=== PATIENT | female | born 1945 | race Caucasian/White ===

== ENCOUNTER → 2017-02-22 | Outpatient (CLI) | payer OTHER | LOC: FIMAGING 14:51 | PROVIDERS: ATTEND Internal Medicine | DX: Z12.31 Encounter for screening mammogram for malignant neoplasm of breast (principal) | CPT/HCPCS: G0202 ==

== ENCOUNTER 2017-06-06 08:11 | Outpatient (CLI) | payer OTHER ==
[2017-06-06] MEDS ORDERED: GADOBUTROL 10 ML VIAL IVP ONE (08:19)
[2017-06-06] MEDS ORDERED: MIDAZOLAM 2 MG/2 ML VIAL IVP PRN (08:33)
[2017-06-06] MEDS ORDERED: NALOXONE HCL 0.4 MG/ML INJ IVP PRN (08:33)
[2017-06-06] MEDS ORDERED: FLUMAZENIL 0.5 MG/5 ML MDV IVP PRN (08:33)
[2017-06-06] MEDS ORDERED: fentaNYL 100 MCG/2 ML INJ IVP PRN (08:33)
[2017-06-06] MEDS ORDERED: NS 1,000 ML IV SCH (08:45)
[2017-06-06 09:05] VITALS: TEMP 97.9
--- NOTE | 2017-06-06 09:25 | PDGENHP ---
History & Physical Chief Complaint: tremor History of Present Illness: tremor Cardiorespiratory Assessment: lungs clear, heart rate regular
--- NOTE | 2017-06-06 09:26 | PDPROPOC ---
Sedation Plan of Care Sedation Plan of Care: vital signs stable, mental status noted, patient educated of risks, benefits, alternatives, patient can tolerate sedation ASA Classification: ASA 1 Planned drugs: midazolam Mallampati Score: Class 2 Mallampati Reference Image: Patient passed 3-3-2 rule?: Yes
[2017-06-06] MEDS ORDERED: MIDAZOLAM 2 MG/2 ML VIAL ONE (10:12)
[2017-06-06] MEDS ORDERED: ACETAMINOPHEN 325 MG TAB PO PRN (10:46)
[2017-06-06] MEDS ORDERED: ONDANSETRON 4 MG/2 ML VIAL IVP PRN (10:46)
[2017-06-06 10:48] VITALS: BP 137/88; PULSE 88; RESP 16; O2SAT 91
== END 2017-06-06 11:50 | disposition home or self-care (01) ==
LOC: FIMAGING 08:11
PROVIDERS: ATTEND Physician Assistant Surgical
PROC: B030YZZ Magnetic Resonance Imaging (MRI) of Brain using Other Contrast (ICD-10-PCS; principal; 2017-06-06 09:38)
DX: G25.0 Essential tremor (principal); I67.9 Cerebrovascular disease, unspecified
CPT/HCPCS: 70552; 99152; 99153; A9585; J2250

== ENCOUNTER 2017-06-12 05:46 | Inpatient (IN) | payer OTHER ==
--- NOTE | 2017-06-06 09:37 | GHP ---
[f rep st] PREOP HISTORY AND PHYSICAL DATE OF ADMISSION: 06/12/2017 DATE OF SURGERY: 06/12/2017 HISTORY OF PRESENT ILLNESS: The patient is a 72-year-old female with essential tremor. She has had essential tremor for many years starting from when she was a teenager. She is right-hand dominant, however, her tremor is worse on the left. She has a family history of essential tremor and her son is now displaying symptoms. She denies bradykinesia or rigidity. She does not have a neurologist at this time. PAST MEDICAL HISTORY: Essential tremor. PAST SURGICAL HISTORY: Appendectomy, tonsillectomy. SOCIAL HISTORY: Admits to drinking alcohol socially. She is a former smoker and quit 20 years ago. She is retired. ALLERGIES: No known drug allergies. CURRENT HOME MEDICATIONS: Vitamin D3, calcium carbonate, vitamin C, multivitamin, Tylenol, Valtrex, Ambien, Actonel, and Cymbalta. FAMILY HISTORY: Essential tremor. REVIEW OF SYSTEMS: Patient denies chest pain, shortness of breath, abdominal pain, nausea, vomiting. No headaches. No loss of bowel or bladder control. PHYSICAL EXAM: Patient was seen and examined. Appears to be in no apparent distress. Mood and affect are appropriate. Alert and oriented. Pupils are equal and reactive. Extraocular movements are intact. Facial expression is symmetrical. Tongue is midline with protrusion. Hearing is grossly intact. Speech is fluent without any dysarthria. Muscle strength is well preserved in upper and lower extremities at 5/5 and sensation is intact to light touch. She has bilateral hand tremor, worse with intention. ASSESSMENT AND PLAN: In summary, the patient is a 72-year-old female with essential tremor. She has left greater than right hand tremor. However, she is right handed. She had a neuropsych evaluation completed on March [address] Queen who states she is a good candidate for proceeding with deep brain stimulation for treatment of her central tremor. At this point, we have decided to proceed with right VIM placement for left hand symptoms as her left hand is worse than her right hand. We will hold off on proceeding with right hand tremor at this time due to the increased side effects of bilateral DBS with slurred speech and balance disturbances that can occur with programming. The patient has elected to move forward with surgery. Consents were signed. Patient has agreed to proceed with left VIM deep brain stimulation lead placement with implant of battery 1 month later. /[id number]/MODL MTDD
[2017-06-12] MEDS ORDERED: CEFUROXIME 1,500 MG in NS 50 ML IV ONE (06:00)
[2017-06-12] MEDS ORDERED: LR 1,000 ML IV ONE (06:02)
[2017-06-12] MEDS ORDERED: LIDOCAINE 1% 2 ML INJ ID PRN (06:02)
[2017-06-12] MEDS ORDERED: DEXMEDETOMIDINE IN 0.9 % NACL 50 ML IV SCH (06:30)
[2017-06-12] MEDS ORDERED: niCARdipine/NACL 200 ML IV SCH (06:30)
[2017-06-12 06:34] LABS: PLATELET COUNT 312 10^3/uL (150-400)
[2017-06-12 06:39] LABS: INR 0.99 (0.83-1.16); PROTIME(PATIENT) 13.3 SEC (12.0-15.0)
--- NOTE | 2017-06-12 06:47 | PDANEPAE ---
ANE History of Present Illness right DBS ANE Past Medical History - Cardiovascular History Hx Hypertension: No Hx Arrhythmias: No Hx Chest Pain: No Hx Coronary Artery / Peripheral Vascular Disease: No Hx CHF / Valvular Disease: No Hx Palpitations: Yes - Pulmonary History Hx COPD: No Hx Asthma/Reactive Airway Disease: No Hx Recent Upper Respiratory Infection: Yes Hx Oxygen in Use at Home: No Hx Sleep Apnea: No Sleep Apnea Screening Result - Last Documented: Negative Pulmonary History Comment: "Getting over an upper respiratory infection." - Neurologic History Hx Cerebrovascular Accident: No Hx Seizures: No Hx Dementia: No - Endocrine History Hx Diabetes: No - Renal History Hx Renal Disorders: No - Liver History Hx Hepatic Disorders: No - Neurological & Psychiatric Hx Hx Neurological and Psychiatric Disorders: Yes Neurological / Psychiatric History Comment: Essential tremor - Cancer History Hx Cancer: No - Congenital Disorder History Hx Congenital Disorders: No - GI History Hx Gastrointestinal Disorders: No - Other Health History Other Health History: wears glasses - Chronic Pain History Chronic Pain: No - Surgical History Prior Surgeries: appendectomy at age 6. tonsillectomy at age 9. Blephoplasty bilateral 2014 ANE Review of Systems Review of systems is: negative Review of Systems: - Exercise capacity Exercise capacity: >=4 METS METS (RN): 4 METS ANE Patient History - Allergies Allergies/Adverse Reactions: No Known Allergies Allergy (Verified 05/31/17 13:56) - Home Medications Home Medications: DULoxetine [Cymbalta 60 MG (*)] 60 mg PO HS 09/06/09 [Last Taken 06/11/17 20:00] Acetaminophen [Tylenol 325mg (*)] 325 mg PO DAILY PRN 05/07/17 [Last Taken 06/05] Ascorbic Acid [Vitamin C 500 mg (*)] 1,000 mg PO DAILY 05/07/17 [Last Taken 03/13] Calcium Carbonate [Oyster Shell Calcium 500 mg (*)] 1,000 mg PO DAILY 05/07/17 [ Last Taken 06/05/17] Cholecalciferol Vit D3 [Vitamin D3 2000 units tab (OTC)] 2,000 units PO DAILY [Last Taken 06/05/17] Multivitamins [Multivitamin (*)] 1 tab PO DAILY 05/07/17 [Last Taken 06/05/17] Risedronate Sodium [Actonel] 150 mg PO Q30D 05/07/17 [Last Taken 05/10/17] Zolpidem Tartrate [Ambien 5MG (*)] 5 mg PO HS PRN 05/07/17 [Last Taken 06/05/17] valACYclovir [Valtrex (*)] 1,000 mg PO BID PRN 05/07/17 [Last Taken 04/21/17] - NPO status NPO Status: no food or drink >8 hours NPO Since - Liquids (Date): 06/11/17 NPO Since - Liquids (Time): 22:30 NPO Since - Solids (Date): 06/11/17 NPO Since - Solids (Time): 18:00 - Anes Hx Anes Hx: no prior problems - Smoking Hx Smoking Status: Former smoker - Alcohol Use Alcohol Use: Occasionally (6/wk) - Family Anes Hx Family Hx Anesthesia Complications: none ANE Labs/Vital Signs - Labs Result Diagrams: 06/12/17 06:01 06/12/17 06:17 - Vital Signs Blood Pressure: 135/94 Heart Rate: 88 Respiratory Rate: 18 O2 Sat (%): 91 Height: 160.02 cm Weight: 72.575 kg ANE Physical Exam - Airway Neck exam: FROM Mallampati Score: Class 2 - Pulmonary Pulmonary: no respiratory distress - Cardiovascular Cardiovascular: regular rate and rhythym - ASA Status ASA Status: II ANE Anesthesia Plan Anesthesia Plan: MAC
[2017-06-12] MEDS ORDERED: THROMBIN (BOVINE) 20,000 UNIT VIAL TP ONE (06:52)
[2017-06-12] MEDS ORDERED: CHLORHEXIDINE GLUC HIBICLENS 118 ML BTL TP ONE (06:52)
[2017-06-12] MEDS ORDERED: LIDOCAINE 2% JELLY 20 ML (UROJECT) ONE (06:53)
[2017-06-12] MEDS ORDERED: GENTAMICIN SULFATE 80 MG/2 ML VIAL ONE ×2 (06:53→07:16)
[2017-06-12] MEDS ORDERED: BUPIVACAINE 0.25% 30 ML SDV ONE ×2 (06:53→07:07)
--- NOTE | 2017-06-12 06:55 | PDHPUP ---
History & Physical Update H&P update statement: This history and physical update is based on an assessment of the patient which was completed after admission or registration (within 24 hours), but prior to the surgery/procedure. H&P update: H&P reviewed & patient examined, no change in patient's condition since H&P completed
[2017-06-12] MEDS ORDERED: DEXMEDETOMIDINE/NS 4MCG/ML 50 ML BTL IV ONE (06:56)
[2017-06-12] MEDS ORDERED: PROPOFOL/EMULSION 500 MG/50 ML BOTTLE IV ONE (06:57)
[2017-06-12] MEDS ORDERED: fentaNYL 100 MCG/2 ML INJ ONE (07:17)
[2017-06-12] MEDS ORDERED: LIDOCAINE 2% 5 ML SDV ONE (07:17)
[2017-06-12] MEDS ORDERED: POVIDONE-IODINE 30 GM OINTTUBE TP ONE (07:21)
[2017-06-12] MEDS ORDERED: ONDANSETRON 4 MG/2 ML VIAL ONE (08:08)
[2017-06-12] MEDS ORDERED: DEXAMETHASONE 4 MG/ML VIAL ONE (08:08)
[2017-06-12] MEDS ORDERED: PHENYLEPHRINE HCL 100 MCG/ML SYR ONE (09:02)
[2017-06-12] MEDS ORDERED: valACYclovir 500 MG TAB PO PRN (11:18)
[2017-06-12] MEDS ORDERED: LABETALOL HCL 5 MG/ML 20 ML MDV IVP PRN (11:19)
[2017-06-12] MEDS ORDERED: OXYCODONE/APAP 5/325 TAB PO PRN (11:19)
[2017-06-12] MEDS ORDERED: ONDANSETRON 4 MG/2 ML VIAL IVP PRN ×2 (11:19→11:20)
[2017-06-12] MEDS ORDERED: fentaNYL 100 MCG/2 ML INJ IVP PRN (11:19)
[2017-06-12] MEDS ORDERED: NALOXONE HCL 0.4 MG/ML INJ IVP PRN (11:19)
--- NOTE | 2017-06-12 11:19 | POSTANESTH ---
Post Anesthetic Evaluation Cardiovascular Status: Normal, Stable Respiratory Status: Normal, Stable Level of Consciousness/Mental Status: Can Participate in Eval, Moderately Sleepy Pain Control: Adequate, Prn Tx Ordered Nausea/Vomiting Control: Adequate, Prn Tx Ordered Complications Possibly Related to Anesthesia: None Noted
[2017-06-12] MEDS ORDERED: BISACODYL 10 MG SUPP PR PRN (11:20)
[2017-06-12] MEDS ORDERED: POLYETHYLENE GLYCOL 3350 17 GM PKT PO PRN (11:20)
[2017-06-12] MEDS ORDERED: LACTULOSE 20 GM/30 ML UDCUP PO PRN (11:20)
[2017-06-12] MEDS ORDERED: MAGNESIUM HYDROXIDE 30 ML UDCUP PO PRN (11:20)
--- NOTE | 2017-06-12 11:21 | GOP ---
[f rep st] OPERATIVE REPORT DATE OF OPERATION: 06/12/2017 SURGEON: Consuelo Gibson DO NEUROSURGEON: Consuelo Gibson DO. PEDIATRIC NEUROLOGIST: None. EDILSON dictation will be by Genevieve Acevedo PA-C. PREOPERATIVE DIAGNOSIS: Essential tremor. POSTOPERATIVE DIAGNOSIS: Essential tremor. PROCEDURE PERFORMED: 1. Right deep brain stimulator lead placement to VIM nucleus of the thalamus. 2. Stealth. 3. Impedances. FINDINGS: SPECIMENS: None. ESTIMATED BLOOD LOSS: 10 mL. INDICATIONS: This is a 72-year-old female with essential tremor, who was found to be a good candidat e for DBS to the VIM. She elected to move forward with right-sided lead placement. DESCRIPTION OF PROCEDURE: She was identified and consented and sites were marked. Brought to the op erating room and anesthetized with local. Hair was clipped with the OR clippers. Head was cleansed with ChloraPrep. Pin sites were anesthetized with 0.25% Marcaine with epinephrine. Using povidone i odine on the pin, Leksell frame was placed in a stereotactic fashion, and then a stereotactic spin wa s performed with the O arm 2 with a localizer box, and merged to the S8 frame length preoperative damien n and registered. The AC/PC distance was 27.27. The initial X was 12.56, Y of -6.91, and a Z of 0.0 7. The entry point X was 37.64, Y of 35.43, and Z of 73.63. This corresponded 18.8 degrees off mids agittal and 60.1 degrees off midaxial. This corresponded to Leksell frame coordinates of an X of 86. 5, a y of 95, a Z of 109.5, a ring of 66 degrees, and an arc of 74.6 degrees. These were all set and triple-checked by all providers in the room. After she was prepped and draped in the usual sterile fashion, incision site was marked using the stereotactic coordinates and the cannula, and then a half -ennis incision was anesthetized with 0.25% Marcaine with epinephrine. Incision was made with a 10 bl alessandra. Hemostasis was obtained with bipolar and Claire clips. We elevated the periosteum with a perios teal elevator, placed a retractor, and then marked the bone and opening using the preoperative plan. Created a submersible pilot hole and then a 14 mm bur hole. The edges were waxed. The dura was coagulated and opened sharply with an 11 blade. The cannula and stylet were introduced, and Gel-Foam and DuraSeal w as placed. We then performed microelectrode recording. We had actually an excellent run VIM; please refer to the EDILSON recording. However, on macro stim, we got some paresthesias at low voltages, indic ating this may be a posteriorly-placed lead. We had planned to make a 2 mm anterior move, so we drov e back up to target and remove the microelectrode, placed a cannula, removed the Gel-Foam and DuraSea l, and placed a 2 mm anterior cannula and internal stylette, locked it into place, removed the corporate communications intern al stylettes where both were replaced with microelectrodes. Performed another EDILSON with the anterior tract. Still got excellent thalamus elected. A macro stim tear was loaded with no side effects and good therapeutic effect. Elected to place the lead here, so at 2 above target. Please refer again t o the EDILSON dictation. We drove to this position, removed the EDILSON electrodes, placed the internal styl et in the center cannula, measured and placed the lead, and placed it into the position placed in the bottom of the bottom contact at 2 above target. We then tested each contact and got excellent thera peutic effect with low-to-no side effects. Elected to leave the lead here. Took an x-ray with the b omb site, and then performed a stereotactic spin, merged this and, in fact, we were exactly where we expected to be. Retracted the cannulae and placed the clipping mechanism for the Stimloc device that had been locked into place and checked prior to placing cannulae. Clipped and locked this, marked t he lead, removed the stylet, brought the lead down and out placed it into the groove. Placed the cap on and took another x-ray with the Gabino sites in place; it had not migrated. Placed the boot over th e lead, placed extension over the lead, protecting each contact and locked it in place with the torqu e wrench. Brought the boot over the lead extension complex, tied in position with 2-0 silk ties at 2 positions. Tunneled posterior with periosteal elevator. Anesthetized the posterior stab incision w ith 0.5% Marcaine with epinephrine. Made a stab incision with an 11 blade. Tunneled posterior to an terior with tunneler. Brought the extension down and out, cutting it at the skin, coiling the lead p osterior and around the incision. Took a final x-ray with Gabino sites and placed; it had not migrated. Copiously irrigated with over a liter of gentamicin in IV saline. Closed the galea with 2-0 Vicryl pop-offs. The skin was closed with 3-0 running nylon and a 3-0 nylon was used to close the stab inc ision posteriorly. The wound was dressed with Xeroform and Telfa stapled down. The frame was remove d. Patient tolerated procedure well. There were no complications. FLUIDS: 800 mL crystalloid. URINE OUTPUT: 150 mL. DRAINS: None. COMPLICATIONS: None. /[id number]/MODL
[2017-06-12] MEDS ORDERED: hydrALAZINE 20 MG/ML VIAL IVP PRN (11:22)
--- NOTE | 2017-06-12 11:24 | POSTOPPROG ---
Post Op Note Date of Operation: 06/12/17 Surgeon: Consuelo Gibson [employer] Worker: Sandra Jaramillo PA-C Anesthesiologist: Dr. Carlos Anesthesia: IV Sedation Pre-op Diagnosis: Essential tremor Post-op Diagnosis: Essential tremor Procedure: Right VIM DBS lead placement Inf/Abcess present in the surg proc area at time of surgery?: No Depth: Superfical (Skin SQ) EBL: Minimal Plan Plan: 72 yo female s/p right VIM DBS lead placement for essential tremor - neuro checks - maintain SBP < 140 - postop head CT pending - pain control - dispo: home tomorrow Exam Awake. Alert Following commands Incision with dressing c/d/i
[2017-06-12] MEDS ORDERED: NS W/ 20 KCl/L 1,000 ML IV SCH (11:30)
--- NOTE | 2017-06-12 11:51 | GPN ---
[f rep st] PROCEDURE NOTE DATE OF PROCEDURE: 06/12/2017 PREPROCEDURE DIAGNOSIS: Essential tremor. POSTPROCEDURE DIAGNOSIS: Essential tremor. PROCEDURE PERFORMED: Intraoperative functional subcortical mapping by microelectrode recording and stimulation. COMPLICATIONS: None. INDICATIONS FOR PROCEDURE: Determination of optimal electrode lead placement for deep brain stimulation therapy for essential tremor to the VIM. DESCRIPTION OF PROCEDURE: Following the incision on the right, a nora hole was drilled. The arc was then arranged with the following coordinates. X86.5, Y95.0, Z109.5, ring 66, arc 74.6. The recording microelectrode was advanced slowly into the brain using a central tract. Cell bursts were found above target at 12.5. We then entered the IM at 11 above target. There was more robust found at VIM at 10 above target. There was change with stimulation with elbow flexion at 8.5 above target and with deep touch of the forearm at 3 above target. There was evidence of light touch at 0.1 below target. With these microelectrode recordings, we proceeded with macro stimulation. The patient had constant sustained tingling in her left hand at 1.0 V and thus it was determined to move the lead location due to these side effects of the stimulation. We then proceeded with an anterior tract with microelectrode recording. There was evidence of entering VIM at approximately 8 above target with a tremor cell at 6.75 above target. We exited at 2 above target. We then proceeded with macro stimulation. The patient had transient tingling up to 4.0 V. With this microelectrode recording in the anterior tract and macro stimulation, we elected to place the lead in this location with the bottom of the lead at 2.0 above target. We then proceeded with test stimulation. At 0- patient had improved tremor and transient tingling in her left hand up to 2.5 with sustained tingling at 3.0. At 1- patient had improved tremor with transient tingling at 3.5. At 2- patient had no side effects up to 3.5 with the best tremor control at this contact. At 3- patient had no side effects up to 3.5. We elected to leave the lead at this location with the bottom of the lead at 2 above target due to the recordings we obtained as well as the test stimulation. The patient tolerated the surgery well without complication. /[id number]/MODL MTDD
[2017-06-12] MEDS: ACETAMINOPHEN 325 MG TAB PO PRN ×2 (16:16→22:10)
[2017-06-12] MEDS: CEFUROXIME 1,500 MG in NS 50 ML IV SCH ×2 (16:17→23:51)
[2017-06-12] MEDS: SENNOSIDES/DOCUSATE SODIUM TAB PO SCH (20:03)
[2017-06-12] MEDS ORDERED: DULoxetine 60 MG CAP PO SCH (21:00)
[2017-06-13] MEDS: HYDROCODONE/APAP 10/325 TAB PO PRN ×2 (00:02→06:10)
[2017-06-13 04:21] VITALS: RESP 16
[2017-06-13 07:37] VITALS: BP 136/83; PULSE 82; TEMP 98.8; O2SAT 90
--- NOTE | 2017-06-13 08:00 | NEUSURGPN ---
Assessment/Plan: 72 yo female s/p right VIM DBS lead placement for essential tremor POD#1 - neuro checks - maintain SBP < 140 - postop head CT reviewed - shows expected post op changes - pain control - dispo: home today - D/w Dr Gibson - Call NS with any questions/concerns. Subjective: Pt resting in bed, eating breakfast. Denies headache. Did not sleep much. Objective: AAOx3 NAD VSS CN II - XII grossly intact MAEx4 Motor 5/5 BUE/BLE Incisions cdi sutures in place Dressing changed Urinary Catheter in Place: No - Physician Discussed Patient with : Arthur Patient Seen by : Arthur Neurosurgery Physical Exam - Vitals, I&O, Labs I and O 06/12/17 06/13/17 06/14/17 05:59 05:59 05:59 Intake Total 3025 Output Total 1061 Balance 1964 Weight 72.575 kg Intake: Oral (ml) 1550 IV Intake (ml) 875 IV Infused (ml) 600 Cefuroxime 1,500 mg In Ns 50 50 ml @ 200 mls/hr IV ONCALL ONE Rx#:[id number] Cefuroxime 1,500 mg In Ns 50 50 ml @ 200 mls/hr IV Q8H MELLISSA Rx#:[id number] NS W/ 20 KCl/L 1,000 ml @ 500 100 mls/hr IV CONT MELLISSA Rx#:[id number] Output: Urine (ml) 1051 Toilet 1051 Estimated Blood Loss (ml) 10 Other: Intake Quantity Yes Sufficient Number of Voids Toilet 1 Vital Signs Temp Pulse Resp BP Pulse Ox 37.1 C 82 16 136/83 H 90 L 06/13/17 07:36 06/13/17 07:36 06/13/17 07:36 06/13/17 07:36 06/13/17 07:36 Laboratory Results 06/12/17 06:01 06/12/17 06:17 ICD10 Worksheet Patient Problems: Problems Problem Status Onset Essential tremor Acute - ICD10 Problem Qualifiers (1) Essential tremor
[2017-06-13] MEDS ORDERED: MULTIVITAMINS 1 EACH TAB PO SCH (09:00)
--- NOTE | 2017-06-13 09:42 | ASMTCMCOM ---
CM Note CM Note Notes: Met with patient to assess for needs. She declines needs. Reports good support. Up ambulating and Independent with ADLs, No needs identified. CM available should needs arise. Date Signed: 06/13/2017 09:42 AM Electronically Signed By:Riya Marks RN
[2017-06-13] MEDS: SENNOSIDES/DOCUSATE SODIUM TAB PO SCH (10:22)
--- NOTE | 2017-06-13 16:54 | ASDISCHSUM ---
Discharge Information Plan Status:Home with No Needs Medically Cleared to Leave: Discharge Date:06/13/2017 12:34 PM CM D/C Disposition:Home, Routine, Self-Care ADT D/C Disposition:Home, Routine, Self-Care Projected Discharge Date:06/13/2017 12:34 PM Transportation at D/C: Discharge Delay Reason: Follow-Up Date:06/13/2017 12:34 PM Discharge Slot: Final Diagnosis: Placement Information Patient Contact Information Contact Name:SADI Relationship: Address:[address] [facility] City:[facility] Phone: [facility]/Zip Code:[place] [address] Email: Financial Information Financial Class:Medicare Advantage Plans Primary Plan Desc:[facility] [employer] PLANS Primary Plan Number:[id number] Secondary Plan Desc: Secondary Plan Number: Assessment Information [facility] CM Progress Note CM Note CM Note Notes: Met with patient to assess for needs. She declines needs. Reports good support. Up ambulating and Independent with ADLs, No needs identified. CM available should needs arise. Date Signed: 06/13/2017 09:42 AM Electronically Signed By:Riya Marks RN LACE LACChris Length of stay for Answers: Less than 1 day current admission Acuity / Level of Care Answers: No. Emergency dept visits in Answers: 0 last 6 months Date Signed: 06/13/2017 09:43 AM Electronically Signed By:Riya Marks RN Intervention Information
== END 2017-06-13 12:34 | disposition home or self-care (01) | DRG 30 ==
LOC: F3N 05:46
PROVIDERS: ADMIT Neurological Surgery; ATTEND Neurological Surgery
PROC: 00H Central Nervous System and Cranial Nerves, Insertion (ICD-10-PCS; principal; 2017-06-12 07:15)
DX: G25.0 Essential tremor (principal); Z87.891 Personal history of nicotine dependence
CPT/HCPCS: C1713; J0171; J0360; J0697; J1100; J2370; J2405; J2704; J3010

== ENCOUNTER 2017-07-03 09:38 | Day surgery (SDC) | payer OTHER ==
[2017-07-03] MEDS ORDERED: CHLORHEXIDINE GLUC HIBICLENS 118 ML BTL TP ONE (09:49)
[2017-07-03] MEDS ORDERED: GENTAMICIN SULFATE 80 MG/2 ML VIAL ONE (09:50)
[2017-07-03] MEDS ORDERED: BUPIVACAINE 0.25% 30 ML SDV ONE (09:50)
[2017-07-03] MEDS ORDERED: ceFAZolin 2 GM/SWFI 2 GM/20 ML SYR IVP ONE (10:04)
[2017-07-03] MEDS ORDERED: LIDOCAINE 1% 2 ML INJ ID PRN (10:05)
[2017-07-03] MEDS ORDERED: LR 1,000 ML IV ONE (10:05)
[2017-07-03] MEDS ORDERED: MIDAZOLAM 2 MG/2 ML VIAL IVP ONE (10:23)
--- NOTE | 2017-07-03 10:23 | PDANEPAE ---
ANE History of Present Illness Craniotomy B DBS generator implant ANE Past Medical History - Cardiovascular History Hx Hypertension: No Hx Arrhythmias: No Hx Chest Pain: No Hx Coronary Artery / Peripheral Vascular Disease: No Hx CHF / Valvular Disease: No Hx Palpitations: Yes - Pulmonary History Hx COPD: No Hx Asthma/Reactive Airway Disease: No Hx Recent Upper Respiratory Infection: Yes Hx Oxygen in Use at Home: No Hx Sleep Apnea: No Sleep Apnea Screening Result - Last Documented: Negative Pulmonary History Comment: "Getting over an upper respiratory infection." - Neurologic History Hx Cerebrovascular Accident: No Hx Seizures: No Hx Dementia: No Neurologic History Comment: essential tremor - Endocrine History Hx Diabetes: No - Renal History Hx Renal Disorders: No - Liver History Hx Hepatic Disorders: No - Neurological & Psychiatric Hx Hx Neurological and Psychiatric Disorders: Yes Neurological / Psychiatric History Comment: Essential tremor - Cancer History Hx Cancer: No - Congenital Disorder History Hx Congenital Disorders: No - GI History Hx Gastrointestinal Disorders: No - Other Health History Other Health History: wears glasses - Chronic Pain History Chronic Pain: Yes - Surgical History Prior Surgeries: appendectomy at age 6. tonsillectomy at age 9. Blephoplasty bilateral 2014 ANE Review of Systems Review of systems is: negative Review of Systems: - Exercise capacity METS (RN): 4 METS ANE Patient History - Allergies Allergies/Adverse Reactions: No Known Allergies Allergy (Verified 05/31/17 13:56) - Home Medications Home medications: home medication list seen and reviewed Home Medications: DULoxetine [Cymbalta 60 MG (*)] 60 mg PO HS 09/06/09 [Last Taken 07/02/17 21:00] Acetaminophen [Tylenol 325mg (*)] 325 mg PO DAILY PRN 05/07/17 [Last Taken 07/01] Ascorbic Acid [Vitamin C 500 mg (*)] 1,000 mg PO DAILY 05/07/17 [Last Taken ] Calcium Carbonate [Oyster Shell Calcium 500 mg (*)] 1,000 mg PO DAILY 05/07/17 [ Last Taken 06/26/17] Cholecalciferol Vit D3 [Vitamin D3 2000 units tab (OTC)] 2,000 units PO DAILY [Last Taken 06/26/17] Multivitamins [Multivitamin (*)] 1 tab PO DAILY 05/07/17 [Last Taken 06/26/17] Risedronate Sodium [Actonel] 150 mg PO Q30D 05/07/17 [Last Taken 05/15/17] Zolpidem Tartrate [Ambien 5MG (*)] 5 mg PO HS PRN 05/07/17 [Last Taken 06/25/17] valACYclovir [Valtrex (*)] 1,000 mg PO BID PRN 05/07/17 [Last Taken 06/12/17] - NPO status NPO Status: no food or drink >8 hours - Anes Hx Anes Hx: no prior problems - Smoking Hx Smoking Status: Former smoker - Family Anes Hx Family Anes Hx: none Family Hx Anesthesia Complications: none ANE Labs/Vital Signs - Vital Signs Height: 160.02 cm Weight: 72.575 kg ANE Physical Exam - Airway Neck exam: FROM Mallampati Score: Class 1 - Pulmonary Pulmonary: no respiratory distress - Cardiovascular Cardiovascular: regular rate and rhythym - ASA Status ASA Status: II ANE Anesthesia Plan Anesthesia Plan: general endotracheal anesthesia
[2017-07-03] MEDS ORDERED: ONDANSETRON 4 MG/2 ML VIAL ONE (11:39)
[2017-07-03] MEDS ORDERED: LIDOCAINE 2% 100 MG/5 ML SYR ONE (11:39)
[2017-07-03] MEDS ORDERED: ROCURONIUM 50 MG/5 ML VIAL ONE (11:39)
[2017-07-03] MEDS ORDERED: DEXAMETHASONE 4 MG/ML VIAL ONE (11:39)
[2017-07-03] MEDS ORDERED: PROPOFOL 200 MG/20 ML VIAL ONE (11:40)
[2017-07-03] MEDS ORDERED: fentaNYL 250 MCG/5 ML INJ ONE (11:40)
[2017-07-03] MEDS ORDERED: PHENYLEPHRINE HCL 100 MCG/ML SYR ONE (12:05)
[2017-07-03] MEDS ORDERED: SUGAMMADEX SODIUM 200 MG/2 ML VIAL IVP ONE (12:28)
--- NOTE | 2017-07-03 12:57 | GOP ---
[f rep st] OPERATIVE REPORT DATE OF OPERATION: 07/03/2017 SURGEON: Consuelo Gibson DO NEUROSURGEON: Consuelo Gibosn D.O. PATIENT RELATIONS COORDINATOR: Sandra Jaramillo P.A.-C. PREOPERATIVE DIAGNOSIS: Essential tremor. POSTOPERATIVE DIAGNOSIS: Essential tremor. PROCEDURE PERFORMED: 1. Placement of deep brain stimulator generator to right chest wall connection with indwelling right VIM lead. 2. Impedance. FINDINGS: SPECIMENS: None. INDICATIONS: This is a 72-year-old female with right side VIM lead who returns today for replacement of her generator. She was identified, consented, sites were marked. DESCRIPTION OF PROCEDURE: Brought to the operating room, anesthetized under general endotracheal ane sthesia. Hair was clipped with the OR clippers. Incision sites were marked. She was prepped and dr aped in the usual sterile fashion. Incision was anesthetized with 0.5% Marcaine with epinephrine at the chest wall. Incision was made just lateral to lead extension complex at the head and the lead wa s dissected out using DeBakey and Metzenbaum scissors. We then made an incision at the chest wall fo r the pocket creating a subcutaneous pocket with Metzenbaum scissors and blunt dissection. Meticulou s hemostasis was obtained with bipolar cautery. Then tunneled with a Medtronic tunneler in a single pass over the clavicle bringing the extension wires up and out. We cut the extension boot sutures wi th a 15 blade, discarded these, retracted the boot using the torque wrench protecting each contact, r emoved the boot and the lead extension cap, discarded these, placed a new boot. Gently dried the reinier d. Placed it into the extension, locked into place with the torque wrench. Placed the lead into the generator, and the locked into place with the torque wrench. Checked impedances, all impedances wer e good. Brought the boot over the lead extension complex, tied with 2-0 silk stitch in 2 positions, brought it flat against the skull. Coiled the remainder of the extension posterior to the generator, sutured to the chest wall with 2-0 silk stitch at 2 positions, copiously irrigated each incision wit h over a liter of gentamicin infused saline. Closed the galea with 2-0 Vicryl pop-offs. The skin wi th 3-0 running nylon. At the chest the fascia was closed with 2-0 Vicryl pop-offs, subcutaneous laye r with 3-0 Vicryl pop-offs. The skin was closed with 4-0 running Monocryl. subcuticular stitch and Dermabond. Head wound was dressed with Xeroform gauze and a Tegaderm. The patient tolerated the pro cedure well. No complications. FLUIDS: 450 mL crystalloid. URINE OUTPUT: None. DRAINS: None. COMPLICATIONS: None. /[id number]/MODL
[2017-07-03] MEDS: fentaNYL 100 MCG/2 ML INJ IVP PRN ×3 (13:05→14:09)
[2017-07-03] MEDS ORDERED: PROMETHAZINE HCL 25 MG/ML INJ IVP PRN (13:12)
[2017-07-03] MEDS ORDERED: OXYCODONE/APAP 5/325 TAB PO PRN (13:12)
[2017-07-03] MEDS ORDERED: ONDANSETRON 4 MG/2 ML VIAL IVP PRN (13:12)
[2017-07-03] MEDS ORDERED: HYDROCODONE/APAP 5/325 TAB PO PRN (13:12)
[2017-07-03] MEDS ORDERED: NALOXONE HCL 0.4 MG/ML INJ IVP PRN (13:12)
[2017-07-03] MEDS ORDERED: MEPERIDINE 25 MG/ML SYR IVP PRN (13:12)
[2017-07-03] MEDS ORDERED: ACETAMINOPHEN 500 MG TAB PO PRN (13:12)
[2017-07-03] MEDS ORDERED: DEXAMETHASONE 4 MG/ML VIAL IVP PRN (13:12)
--- NOTE | 2017-07-03 13:14 | POSTOPPROG ---
Post Op Note Date of Operation: 07/03/17 Surgeon: Consuelo Gibson Shop Estimator: Sandra Jaramillo PA-C Anesthesiologist: Scott Conner Anesthesia: GET(General Endotracheal) Pre-op Diagnosis: Essential tremor Post-op Diagnosis: Essential tremor Procedure: Right DBS generator placement Inf/Abcess present in the surg proc area at time of surgery?: No Depth: Deep Incisional (Fascial) EBL: Minimal Plan Plan: 72 yo female s/p right DBS generator placement - neuro checks - pain control - advance diet as tolerated - dc home today Patient seen in recovery doing well. Awake. Alert. PERRL. EOMI Incisions with dressings c/d/i Following commands
[2017-07-03] MEDS: LABETALOL HCL 5 MG/ML 20 ML MDV IVP PRN ×3 (13:43→14:42)
[2017-07-03 15:44] VITALS: BP 141/95; RESP 16; TEMP 98.3; O2SAT 93
[2017-07-03 15:47] VITALS: PULSE 86
== END 2017-07-03 15:50 | disposition home or self-care (01) ==
LOC: FSGY 09:38
PROVIDERS: ATTEND Neurological Surgery
PROC: 0JH60BZ Insertion of Single Array Stimulator Generator into Chest Subcutaneous Tissue and Fascia, Open Approach (ICD-10-PCS; principal; 2017-07-03 12:00)
DX: G25.0 Essential tremor (principal)
CPT/HCPCS: C1767; C1787; C1883; J0171; J0690; J1100; J1580; J2001; J2250; J2370; J2405; J2704; J3010

== ENCOUNTER → 2017-07-08 | Outpatient (CLI) | payer OTHER | LOC: FIMAGING 12:42 | PROVIDERS: ATTEND Internal Medicine | DX: Z13.820 Encounter for screening for osteoporosis (principal); M81.0 Age-related osteoporosis without current pathological fracture; Z78.0 Asymptomatic menopausal state ==

== ENCOUNTER 2017-08-25 09:52 | Inpatient (IN) | payer OTHER ==
[2017-08-25] MEDS ORDERED: ONDANSETRON DISINTEGRATING 4 MG TAB PO PRN (13:05)
[2017-08-25] MEDS ORDERED: ONDANSETRON 4 MG/2 ML VIAL IVP PRN ×2 (13:05→14:50)
[2017-08-25] MEDS ORDERED: HYDROmorphone HCL/NS 0.5 MG/ML SYR IVP PRN (13:05)
[2017-08-25] MEDS ORDERED: IBUPROFEN 200 MG TAB PO PRN (13:05)
--- NOTE | 2017-08-25 13:13 | PDGENHP ---
History and Physical - Chief Complaint Acute right chest pain - History of Present Illness Primary care provider: Dr. Ana Upton Primary neurosurgeon: Dr. Consuelo Gibson HPI: 72-year-old female presenting with acute right-sided chest pain characterized as an aching pain with associated headache, pharyngitis, chills with left upper right chest as location, onset of symptoms on the evening prior to this presentation and duration has been persistent thereafter. The symptoms awakened the patient from sleep, she realized the Tylenol to temporarily alleviate them, but they were recurrent on the morning of presentation. She has noted increase in erythema and tenderness located at the right chest generator site. She reports that postoperatively, the area was healing, becoming less tender, but then this abruptly changed last night. She reports that she currently has the generator turned off. History Information - Allergies/Home Medication List Allergies/Adverse Reactions: No Known Allergies Allergy (Verified 05/31/17 13:56) Home Medications: DULoxetine [Cymbalta 60 MG (*)] 60 mg PO HS 09/06/09 [Last Taken 08/24/17] Acetaminophen [Tylenol 325mg (*)] 325 mg PO DAILY PRN 05/07/17 [Last Taken 08/25 08:00] Ascorbic Acid [Vitamin C 500 mg (*)] 1,000 mg PO DAILY 05/07/17 [Last Taken 06/13] Risedronate Sodium [Actonel] 150 mg PO Q30D 05/07/17 [Last Taken 1 Month Ago ~] Zolpidem Tartrate [Ambien 5MG (*)] 5 mg PO HS PRN 05/07/17 [Last Taken 06/25/17] valACYclovir [Valtrex (*)] 1,000 mg PO BID PRN 05/07/17 [Last Taken 08/24/17 21: 00] Calcium Carbonate [Oyster Shell Calcium 500 mg (*)] 500 mg PO BID 08/25/17 [ Last Taken 08/24/17 21:00] Cholecalciferol Vit D3 [Vitamin D3 (*)] 1,000 units PO BID 08/25/17 [Last Taken 08/24/17 21:00] Herbals/Supplements -Info Only 1 ea PO DAILY 08/25/17 [Last Taken Unknown] I have personally reviewed and updated: family history, medical history, social history, surgical history - Past Medical History Additional medical history: Essential tremor - Surgical History Additional surgical history: Deep brain stimulator on 07/03/2017 with generator in the right chest wall. Appendectomy. Tonsillectomy - Family History Additional family history: Son with essential tremor, no family history of venous thromboembolism - Social History Smoking Status: Former smoker Alcohol Use: Occasionally (A couple times a week, no history of withdrawal) Drug Use: None Additional social history: Normally independent in her ADLs Review of Systems Review of Systems: ROS: 10pt was reviewed & negative except for what was stated in HPI & below Constitutional: Reports: chills EENMT: Reports: sore throat Muscolosketal: Reports: other (Right chest) Neurological: Reports: headache Physical Exam Physical Exam: Temp Pulse Resp BP Pulse Ox 37.2 C 114 H 18 146/92 H 91 L 08/25/17 10:40 08/25/17 10:40 08/25/17 10:40 08/25/17 10:40 08/25/17 10:40 Constitutional: no apparent distress, appears nourished, not in pain Eyes: PERRL, anicteric sclera, EOMI Ears, Nose, Mouth, Throat: moist mucous membranes, hearing normal, ears appear normal, no oral mucosal ulcers Cardiovascular: tachycardia, No systolic murmur, No irregularly irregular, No edema Respiratory: no respiratory distress, no rales or rhonchi, clear to auscultation Gastrointestinal: normoactive bowel sounds, soft, non-tender abdomen, no palpable masses, No distension Skin: other (Blanchable erythema over the right chest with associated tenderness and some soft tissue edema, overlying her generator) Musculoskeletal: other (Full range of motion of her neck without any painful flexion or extension) Neurologic: AAOx3, CN II-XII Intact, No weakness Psychiatric: interacting appropriately, not anxious, not encephalopathic, thought process linear Lymph, Heme, Immunologic: other (Tender right anterior cervical lymph node without any posterior cervical lymphadenopathy, no supraclavicular lymphadenopathy) Assessment & Plan Assessment: 72-year-old female presenting with acute cellulitis over her deep brain stimulator generator site with possibly infected hardware Plan: 1. Cellulitis. Acute, new problem this provider, further workup indicated. Evidenced by blanchable erythema with soft tissue edema and tenderness, overlying the generator, with possible deeper surgical site infection and potentially hardware complication -discussed with Sameer Dickson, neurosurgery provider, he and I both agree the patient warrants urgent surgical evaluation and exploration to determine whether the pocket appears to host infection -cultures will be drawn from the wound, get blood cultures, venous lactic, complete metabolic panel, CBC, coags -status post ceftriaxone at urgent care, would recommend broadening to vancomycin, she will receive some Vanco powder in the OR and then subsequent IV vancomycin -supportive care with Tylenol, ibuprofen, Dilaudid as needed for pain, bowel regimen, incentive spirometer -patient will require culture data monitoring for approximately 48 hr after cultures have been drawn 2. Essential tremor. Chronic, reviewed outside records including 07/03/[address] Consuelo Gibson for deep brain stimulator, with generator placed on the right chest wall, no overt complications -patient has essential tremor is mostly in her left upper extremity and is very intentional in nature, get occupational therapy Diet. NPO with IV fluids Prophylaxis. Moderate risk patient, SCDs preoperatively Code. Full, is MD POA Disposition. Anticipated discharge uncertain this time, anticipated length stay is greater than 48 hr for reasonable medical necessity including acute cellulitis with suspected underlying surgical site infection potentially complicating the patient's hardware, requiring operating room exploration at this time, ongoing culture monitoring and IV antibiotics.
[2017-08-25] MEDS ORDERED: NS 1,000 ML IV SCH (13:15)
[2017-08-25] MEDS ORDERED: VANCOMYCIN 1 GM VIAL ONE ×3 (13:18→14:55)
[2017-08-25] MEDS ORDERED: VANCOMYCIN 1.25 GM in D5W 250 ML IV SCH (13:30)
[2017-08-25] MEDS ORDERED: VANCOMYCIN HCL/NORMAL SALINE 250 ML IV ONE (13:35)
[2017-08-25] MEDS ORDERED: BACITRACIN ZINC 14.2 GM OINTTUBE TP ONE (13:43)
[2017-08-25] MEDS ORDERED: CHLORHEXIDINE GLUC HIBICLENS 118 ML BTL TP ONE (13:44)
[2017-08-25] MEDS ORDERED: BUPIVACAINE 0.25% 30 ML SDV ONE (13:44)
--- NOTE | 2017-08-25 13:44 | PDMN ---
Medical Necessity Medical necessity: C/M review: Patient meets INPT crtieria under [facility] [place] M-[facility] Cellulitis: Acute cellulitis over deep brain stimulator generator site right chest wall with possibly infected hardware - increased pain erythema at site requiring planned Neurosurgery consult, urgent 08/25/2017 surgical intervention of exploration right chest wall site, cultures from wound, Vancomycin powder to wound in IN the OR, then ongoing IV Vancomycin Q 12 hrs., blood cultures, ongoing IV NS 150 ml/hr. infusion, pain management with Tylenol, ibuprofen, Dilaudid as needed, culture monitoring, comorbid chronic essential tremor, 2017 DBS stimulator with generator placement in right chest wall. MD anticipates > 2 N LOS for ongoing med nec for eval and TX of above. Patient is Medicare Advantage which follows guidelines CMS puts forth.
[2017-08-25] MEDS ORDERED: BACITRACIN 50,000 UNITS/10 ML SYR IRR ONE (13:45)
[2017-08-25] MEDS ORDERED: PROPOFOL 200 MG/20 ML VIAL ONE (13:49)
[2017-08-25] MEDS ORDERED: ONDANSETRON 4 MG/2 ML VIAL ONE (13:49)
[2017-08-25] MEDS ORDERED: LIDOCAINE 2% 5 ML SDV ONE (13:49)
[2017-08-25] MEDS ORDERED: ROCURONIUM 50 MG/5 ML VIAL ONE (13:49)
[2017-08-25] MEDS ORDERED: DEXAMETHASONE 4 MG/ML VIAL ONE (13:49)
[2017-08-25] MEDS ORDERED: fentaNYL 100 MCG/2 ML INJ ONE ×2 (13:49→14:31)
[2017-08-25] MEDS ORDERED: SUGAMMADEX SODIUM 200 MG/2 ML VIAL IVP ONE (13:53)
--- NOTE | 2017-08-25 13:56 | PDANEPAE ---
ANE History of Present Illness infected DBS battery ANE Past Medical History - Cardiovascular History Hx Hypertension: No Hx Arrhythmias: No Hx Chest Pain: No Hx Coronary Artery / Peripheral Vascular Disease: No Hx CHF / Valvular Disease: No Hx Palpitations: Yes - Pulmonary History Hx COPD: No Hx Asthma/Reactive Airway Disease: No Hx Recent Upper Respiratory Infection: Yes Hx Oxygen in Use at Home: No Hx Sleep Apnea: No Pulmonary History Comment: "Getting over an upper respiratory infection." - Neurologic History Hx Cerebrovascular Accident: No Hx Seizures: No Hx Dementia: No Neurologic History Comment: essential tremor - Endocrine History Hx Diabetes: No - Renal History Hx Renal Disorders: No - Liver History Hx Hepatic Disorders: No - Neurological & Psychiatric Hx Hx Neurological and Psychiatric Disorders: Yes Neurological / Psychiatric History Comment: Essential tremor - Cancer History Hx Cancer: No - Congenital Disorder History Hx Congenital Disorders: No - GI History GERD: no Hx Gastrointestinal Disorders: No - Other Health History Other Health History: wears glasses - Chronic Pain History Chronic Pain: Yes - Surgical History Prior Surgeries: appendectomy at age 6. tonsillectomy at age 9. Blephoplasty bilateral 2014 ANE Review of Systems Review of systems is: negative Review of Systems: - Exercise capacity Exercise capacity: >=4 METS ANE Patient History - Allergies Allergies/Adverse Reactions: No Known Allergies Allergy (Verified 05/31/17 13:56) - Home Medications Home medications: home medication list seen and reviewed Home Medications: DULoxetine [Cymbalta 60 MG (*)] 60 mg PO HS 09/06/09 [Last Taken 08/24/17] Acetaminophen [Tylenol 325mg (*)] 325 mg PO DAILY PRN 05/07/17 [Last Taken 08/25 08:00] Ascorbic Acid [Vitamin C 500 mg (*)] 1,000 mg PO DAILY 05/07/17 [Last Taken 06/13] Risedronate Sodium [Actonel] 150 mg PO Q30D 05/07/17 [Last Taken 1 Month Ago ~] Zolpidem Tartrate [Ambien 5MG (*)] 5 mg PO HS PRN 05/07/17 [Last Taken 06/25/17] valACYclovir [Valtrex (*)] 1,000 mg PO BID PRN 05/07/17 [Last Taken 08/24/17 21: 00] Calcium Carbonate [Oyster Shell Calcium 500 mg (*)] 500 mg PO BID 08/25/17 [ Last Taken 08/24/17 21:00] Cholecalciferol Vit D3 [Vitamin D3 (*)] 1,000 units PO BID 08/25/17 [Last Taken 08/24/17 21:00] Herbals/Supplements -Info Only 1 ea PO DAILY 08/25/17 [Last Taken Unknown] - Anes Hx Anes Hx: no prior problems - Smoking Hx Smoking Status: Former smoker - Alcohol Use Alcohol Use: Occasionally (A couple times a week, no history of withdrawal) - Family Anes Hx Family Hx Anesthesia Complications: none ANE Labs/Vital Signs - Vital Signs Blood Pressure: 146/92 Heart Rate: 114 Respiratory Rate: 18 O2 Sat (%): 91 Height: 160.02 cm ANE Physical Exam - Airway Neck exam: FROM Mallampati Score: Class 1 Mouth exam: normal dental/mouth exam - Pulmonary Pulmonary: no respiratory distress - Cardiovascular Cardiovascular: tachycardia - ASA Status ASA Status: II ANE Anesthesia Plan Anesthesia Plan: general endotracheal anesthesia
[2017-08-25] MEDS ORDERED: LR 1,000 ML IV ONE (14:12)
--- NOTE | 2017-08-25 14:19 | GCON ---
[f rep st] CONSULTATION CONSULTATION/HISTORY AND PHYSICAL DATE OF CONSULTATION: 08/25/2017 TIME SEEN: 1300. CHIEF COMPLAINT: Possible right-sided DBS generator infection. HISTORY OF PRESENT ILLNESS: The patient is a 72-year-old female who presented to an Urgent Care this a.m. with some redness and swelling, tenderness to the right DBS site where the generator is placed for the course of the past day. Patient states that last night she started to have some achy chills as well as some associated headaches and some overall persistent feeling tired and feverish and chill s. The patient has a history of having DBS placement with Dr. Consuelo Gibson, lead placement on 2017, and generator placement on 07/03/2017. She states that had been doing well and functioning wel l for her and that helped significantly with her tremors that she has. She states her symptoms reall y got worse last night and began last night and came on suddenly. She was seen in Urgent Care this m orning. The Urgent Care physician treated her for cellulitis, gave her a dose of Rocephin, and put h er on Keflex and Bactrim. The physician called me earlier this a.m. and asked me to have her follow up as an outpatient, but I directed him to Dr. Rashid. Dr. Rashid directed the patient to the hospital where she had her DBS surgery done. I was seeing another patient, Internal Medicine asked me to see her as well, and I was involved. Immediately, Dr. Gibson was notified and she was scheduled for re moval of this. The patient denies any upper extremity or lower extremity complaints such as numbness , tingling, or weakness. PAST MEDICAL HISTORY: Significant for essential tremors. PAST SURGICAL HISTORY: 1. Deep brain stimulator generator placement on 07/03/2017 with lead placement on 06/02/[address] Consuelo Gibson. 2. Appendectomy. 3. Tonsillectomy. FAMILY HISTORY: Son with essential tremors. No family history of venous thromboembolism. HOME MEDICINES PRIOR TO ADMISSION: Cymbalta, Tylenol, vitamin C, Actonel, Ambien, Valtrex, calcium c arbonate, vitamin D3, and herbal supplements. SOCIAL HISTORY: Patient is a former smoker. She drinks occasional alcohol, couple times per week. No history of drug use. IMMUNIZATIONS: Reported up to date. TRAVEL: No recent travel. REVIEW OF SYSTEMS: Complete 10-point review of systems was negative, otherwise stated in HPI. PHYSICAL EXAM: GENERAL: This is awake, alert, oriented female in no acute distress. MOST RECENT MARCIA SIGNS: Blood pressure 146/92 with a MAP of 110, heart rate of 114, respiratory rate 18, 91% on r oom air, temperature 37.2. HEENT: Head is normocephalic, atraumatic. Pupils are equal, round, reac tive to light. EOMI is intact. Full visual wilson by confrontation. Ears are patent. Nose is chapin nt. NECK: Soft and supple. No midline tenderness. Full range of motion in flexion, extension, lat eral bending, and rotation. RESPIRATORY AND CARDIAC: Deferred. ABDOMEN: Soft, nontender. No casi toneal signs. AND RECTAL: Deferred. NEURO: Patient is awake, alert, oriented to name, place, l ocation, date, time, and situation. Memory is intact to immediate, past, and current events. Speech : No aphasia, dysarthria, dysphonia. Cranial nerves 2-12 grossly intact. Motor: The patient has 5 /5 strength in all muscle groups of bilateral upper and lower extremities to include deltoids, biceps , triceps, brachioradialis, wrist flexion, extensors, advertising clerk intrinsic fingers, iliopsoas, quadriceps, hamstring, plantarflexion, dorsiflexion, EHL testing. Sensation is grossly intact to light touch thr oughout all dermatome distributions upper and lower extremities. Negative straight leg raise. Negat ace LEEANNA test. Reflexes of biceps, triceps, brachioradialis, knee jerk, and ankle jerk are 2+/4. T oes are downgoing bilaterally. Alexandra negative. Babinski negative. No clonus. SKIN: Patient does have a demarcated area of fluctuance, induration, erythema noted over the right D BS generator site. The area was marked earlier today. There is some slight extension of the erythem a noted. This is quite tender with palpation. MEDICAL DECISION MAKING: Diagnostic studies/laboratory tests currently pending. Diagnostic tests/imaging none. ASSESSMENT: 1. Cellulitis/infection of right DBS generator that was placed on 07/03/[address] Consuelo Gibson. 2. Essential tremors. PLAN/DISCUSSION: Melanie is a 72-year-old female who was seen and evaluated both by myself and Dr. Gita betancourt. She had this pulse generator placed on 07/03/2017 and prior to that lead placement on 06/12/19 18, the leads themselves on the scalp were not tender. There was no erythema associated with this. There was no pain extending down her neck. There was well demarcated area of erythema and swelling, tenderness, and induration noted over the pulse generator site itself. I spoke with the patient abou t the necessity for removal of this as well as culture to obtain the proper antibiotic. The patient was consented for removal of this. We talked about the risks of the procedure, and she understood an d wished to proceed. All questions and concerns were answered. The patient understood and agreed. /[id number]/MODL
[2017-08-25] MEDS ORDERED: LABETALOL HCL 5 MG/ML 20 ML MDV ONE (14:38)
[2017-08-25] MEDS ORDERED: epHEDrine SULFATE 10 MG/ML SYR IVP PRN (14:50)
[2017-08-25] MEDS ORDERED: LABETALOL HCL 5 MG/ML 20 ML MDV IVP PRN (14:50)
[2017-08-25] MEDS ORDERED: fentaNYL 100 MCG/2 ML INJ IVP PRN (14:50)
[2017-08-25] MEDS ORDERED: PROMETHAZINE HCL 25 MG/ML INJ IVP PRN (14:50)
[2017-08-25] MEDS ORDERED: ACETAMINOPHEN 500 MG TAB PO PRN (14:50)
[2017-08-25] MEDS ORDERED: HYDROCODONE/APAP 5/325 TAB PO PRN (14:50)
[2017-08-25] MEDS ORDERED: HYDROmorphONE/DILAUDID 2 MG/ML INJ IVP PRN (14:50)
[2017-08-25] MEDS ORDERED: PHENYLEPHRINE HCL 100 MCG/ML SYR IVP PRN (14:50)
[2017-08-25] MEDS ORDERED: NALOXONE HCL 0.4 MG/ML INJ IVP PRN (14:50)
[2017-08-25] MEDS ORDERED: oxyCODONE IR 5 MG TAB PO PRN (14:50)
[2017-08-25] MEDS ORDERED: ALBUTEROL 3 ML DEYVIAL IH PRN (14:50)
--- NOTE | 2017-08-25 15:01 | POSTANESTH ---
Post Anesthetic Evaluation Cardiovascular Status: Normal, Stable Respiratory Status: Normal, Stable Level of Consciousness/Mental Status: Mildly Sleepy, Arousable Pain Control: Adequate, Prn Tx Ordered Nausea/Vomiting Control: Adequate, Prn Tx Ordered Complications Possibly Related to Anesthesia: None Noted
[2017-08-25] MEDS ORDERED: PHENYLEPHRINE HCL 100 MCG/ML SYR ONE (15:13)
[2017-08-25] MEDS ORDERED: ACETAMINOPHEN 325 MG TAB PO PRN (15:37)
[2017-08-25] MEDS ORDERED: ZOLPIDEM TARTRATE 5 MG TAB PO PRN (15:37)
[2017-08-25] MEDS ORDERED: valACYclovir 500 MG TAB PO PRN (15:37)
[2017-08-25] MEDS ORDERED: MAGNESIUM HYDROXIDE 30 ML UDCUP PO PRN (15:39)
[2017-08-25] MEDS ORDERED: POLYETHYLENE GLYCOL 3350 17 GM PKT PO PRN (15:39)
[2017-08-25] MEDS ORDERED: LACTULOSE 20 GM/30 ML UDCUP PO PRN (15:39)
[2017-08-25] MEDS ORDERED: BISACODYL 10 MG SUPP PR PRN (15:39)
--- NOTE | 2017-08-25 15:44 | GOP ---
[f rep st] OPERATIVE REPORT DATE OF OPERATION: 08/25/2017 SURGEON: Consuelo Gibson DO NEUROSURGEON: Consuelo Gibson DO. AIRLINE MANAGERIAL SUPERVISOR: Martinez Dickson PA-C. PREOPERATIVE DIAGNOSIS: 1. Infected deep brain stimulator generator site. 2. Essential tremor. POSTOPERATIVE DIAGNOSIS: 1. Infected deep brain stimulator generator site. 2. Essential tremor. PROCEDURE PERFORMED: 1. Removal of right chest wall deep brain stimulator generator and extension. 2. Cultures. FINDINGS: SPECIMENS: None. ESTIMATED BLOOD LOSS: 25 mL. INDICATIONS: This is a female who underwent a right deep brain stimulator lead and generator placeme nt. The generator was placed on 11/2017. Late last night she started feeling ill and then developed redness and swelling in her generator site. She went to an urgent care and without contacting us, tyrese rogel administered Rocephin and Keflex then contacted us for further guidance. She was then sent to [facility] where she was found to have generator site infection and in attempt to bella ge the brain lead, a salvage procedure was consented for which includes disconnecting the extension f rom the cranial lead and placing a nCAP, placing vancomycin powder over this region, and then in a se parate procedure removing the generator and extension wire. DESCRIPTION OF PROCEDURE: She was identified, consented. Sites were marked. Brought to the operati ng room, anesthetized under general endotracheal anesthesia. Hair was clipped with the OR clipper. Head was turned to the right. The head incision was prepped and draped in the usual sterile fashion. Incision was opened with a 15 blade, and dissecting out the lead extension complex with Metzenbaum scissors, a culture was taken in the subgaleal space. We then cut the stay sutures with a 15 blade, retracted the boot, using the torque wrench protecting each contact. Removed the lead extension, dis carded the boot, cut the extension lead end. We then placed an extension lead cap over the lead and locked into place with a torque wrench after placing vancomycin powder directly over the lead. We th en copiously irrigated with over a liter of gentamicin-infused saline. Placed the remainder of the v ancomycin powder into that space. Closed the galea with 2-0 Vicryl pop-offs and the skin with 3-0 ru nning nylon. We then dressed with Xeroform gauze and a Tegaderm, undraped, and using completely new and different instruments, prepped and draped the chest wall in the usual sterile fashion. Anestheti zed with 0.5% Marcaine with epinephrine. Incision was made with a 10 blade. Dissecting down to the generator pocket with the plasma blade, we got immediate egress of pus. This was sent for culture. The generator was brought up and out and remainder of the extension wire was pulled down and through and verified to be completely removed. We then copiously irrigated with over a liter of gentamicin-i nfused saline. Placed a gram of vancomycin paste into the pocket, closed the subcutaneous pocket wit h 2-0 Vicryl pop-offs. Meticulous hemostasis was maintained with bipolar cautery. Closed the fascia with 2-0 Vicryl pop-offs and the skin with a 3-0 running nylon. Both wounds were dressed with Xerof orm gauze and a Tegaderm. Patient tolerated procedure well and there were no further complications. FLUIDS: 800 mL crystalloid. URINE OUTPUT: None. DRAINS: None. COMPLICATIONS: None. CONSENT: It was consented that there is a possibility that her cranial lead could be infected and wo uld require removal at a later date or could include meningitis. At this point in time, we have no i ndication that that would be the case. Hence the need for the salvage procedure. /[id number]/MODL
[2017-08-25] MEDS ORDERED: Risedronate Sodium [Actonel] 150 MG PO SCH (15:45)
--- NOTE | 2017-08-25 15:46 | SOAPPROG ---
SOAP Progress Note Assessment/Plan: Post Op Visit: S: Awake and alert, Pt with expected incisional pain O: AFVSS/PERRLA/EOMI no droop CN 2-12 grossly intact +lt touch +cms/nv intact x 4 CDI x 2 A/P: 72 yo female that is s/p removal of DBS generator and lead extension -orders in place -call with any questions or concerns -pt seen by Dr Gibson as well -take medications as directed -abx per IM and ID to see pt in am Objective: Vital Signs Temp Pulse Resp BP Pulse Ox 38.2 C 114 H 23 H 146/92 H 94 08/25/17 13:50 08/25/17 13:56 08/25/17 14:00 08/25/17 13:56 08/25/17 14:00 ICD10 Worksheet Patient Problems: Problems Problem Status Onset Wound infection complicating hardware Acute Essential tremor Acute - ICD10 Problem Qualifiers (1) Wound infection complicating hardware
[2017-08-25 16:21] LABS: PLATELET COUNT 251 10^3/uL (150-400)
[2017-08-25 16:28] LABS: INR 1.07 (0.83-1.16); PROTIME(PATIENT) 14.1 SEC (12.0-15.0)
[2017-08-25] MEDS: VANCOMYCIN 1.25 GM in NS 250 ML IV SCH (17:42)
[2017-08-25] MEDS: DULoxetine 60 MG CAP PO SCH (21:05)
[2017-08-25] MEDS: ACETAMINOPHEN 325 MG TAB PO PRN (21:05)
[2017-08-25] MEDS: SENNOSIDES/DOCUSATE SODIUM TAB PO SCH (21:05)
[2017-08-26] MEDS: VANCOMYCIN 1.25 GM in NS 250 ML IV SCH ×2 (02:35→15:20)
--- NOTE | 2017-08-26 07:22 | NEUSURGPN ---
Date of Surgery: 08/25/17 Post Op Day: 1 Assessment/Plan: Assessment: 72 yo female that is s/p removal of DBS generator and lead extension Plan: -ID to see patient this am, and will defer to them for antbx and probably PICC placement -Patient feeling overall improvement this am -Patient discussed with Dr Gibson and Dr Gibson will see patient shortly as well -Please call neurosurgery with any questions/concerns Subjective: Patient feeling better today Objective: PERRLA/EOMI no droop CN 2-12 grossly intact +lt touch +cms/nv intact x 4 CDI x 2 Neuro Check Frequency: per routine Urinary Catheter in Place: No - Physician Discussed Patient with : Arthur Patient Seen by : Arthur Neurosurgery Physical Exam - Vitals, I&O, Labs I and O 08/25/17 08/26/17 08/27/17 05:59 05:59 05:59 Intake Total 1994 Output Total 1875 Balance 120 Weight 72.4 kg Intake: Oral (ml) 400 IV Intake (ml) 1595 Output: Urine (ml) 1850 Toilet 1850 Estimated Blood Loss (ml) 25 Microbiology 08/25/17 15:08 Gram Stain - Final Chest - Eswab 08/25/17 15:08 Gram Stain - Final Scalp - Eswab Vital Signs Temp Pulse Resp BP Pulse Ox 36.6 C 87 16 108/72 91 L 08/26/17 04:00 08/26/17 04:00 08/26/17 04:00 08/26/17 04:00 08/26/17 04:00 Laboratory Results 08/25/17 16:14 08/26/17 04:54 ICD10 Worksheet Patient Problems: Problems Problem Status Onset Wound infection complicating hardware Acute Essential tremor Acute
[2017-08-26] MEDS: SENNOSIDES/DOCUSATE SODIUM TAB PO SCH ×2 (07:50→20:48)
[2017-08-26 09:45] LABS: PLATELET COUNT 261 10^3/uL (150-400)
--- NOTE | 2017-08-26 12:03 | ASMTCASEMG ---
Living Arrangements What is your living Answers: With Spouse arrangement? Who do you live with? Type Of Residence What kind of residence do Answers: House you live in? Discharge Plan Comments Coordination Status Comments Notes: Pt is a 72 y/o female admitted for cellulitis and bactermeia. CM spoke w/ Dr. Gagnon and SARA Jaime regarding d/c POC. ID has been consulted. Pt will most likely d/c either tomorrow or the following day. Awaiting blood cultures. Pt would like referrals sent to [facility] for home infusion. Pt does not have a preference on HC agency. Referral made to [facility]. [facility] and [facility] are able to accept. Pt reports that her daughter in law is a nurse. CM to follow. Plan: [facility] and [facility] Date Signed: 08/26/2017 12:02 PM Electronically Signed By:MARQUEZ Pandey
--- NOTE | 2017-08-26 18:27 | HOSPPROG ---
Hospitalist Progress Note Assessment/Plan: Assessment: 72-year-old female presenting with acute cellulitis over her deep brain stimulator generator site with infected hardware Plan: 1. Cellulitis. POA, Acute, 2/2 underlying hardware infxn, gram stain w/ 1+ GPC -area remains blanchable today, less tender, likely 2/2 decompression of underlying pus pocket -cont Abx 2. Surgical site and hardware infection. POA, evidenced by karen pus on washout , Cx sent, wires/device removed -recommended to patient that she cont to receive IV Vanco while Cx results speciate and demonstrate sensitivity for Abx targeting -d/w Dr. Bustamante, he agrees w/ this approach, appreciate consultation today -ongoing local wound care 3. Essential tremor. Chronic, L hand worse w/ device removal, ongoing work w/ OT 4. Hyperglycemia. A1c pending Diet. Regular Prophylaxis. Moderate risk patient, lovenox 40 Code. Full, is MD BREWSTER Disposition. Anticipated discharge uncertain this time, pending Cx results to target Abx. Subjective: less pain R chest, intentional tremor L hand Objective: Vital Signs Temp Pulse Resp BP Pulse Ox 37.4 C 96 16 123/74 H 92 08/26/17 15:29 08/26/17 15:29 08/26/17 15:29 08/26/17 15:29 08/26/17 15:29 Microbiology 08/25/17 15:08 Gram Stain - Final Scalp - Eswab 08/25/17 15:08 Gram Stain - Final Chest - Eswab Laboratory Results 08/26/17 05:00 08/26/17 04:54 08/25/17 08/26/17 08/27/17 05:59 05:59 05:59 Intake Total 1994 250 Output Total 187 Balance 120 250 PT 14.1 SEC (12.0-15.0) 08/25/17 16:14 INR 1.07 (0.83-1.16) 08/25/17 16:14 - Physical Exam Constitutional: no apparent distress, appears nourished, not in pain, No uncomfortable Cardiovascular: regular rate and rhythym, no murmur, rub, or gallop, No edema Respiratory: no respiratory distress, no rales or rhonchi, clear to auscultation Gastrointestinal: normoactive bowel sounds, soft, non-tender abdomen, no palpable masses Skin: other (non-tender blanching R chest w/o erythema/induration or fluctance; R scalp incision CDI) Neurologic: AAOx3, other (L hand/fingers intention tremor) Psychiatric: interacting appropriately, not anxious, not encephalopathic, thought process linear ICD10 Worksheet Patient Problems: Problems Problem Status Onset Essential tremor Acute Wound infection complicating hardware Acute
[2017-08-26] MEDS: ENOXAPARIN 40 MG/0.4 ML SYR SC SCH (18:40)
[2017-08-26] MEDS: ACETAMINOPHEN 325 MG TAB PO PRN (20:06)
[2017-08-26] MEDS: DULoxetine 60 MG CAP PO SCH (20:06)
--- NOTE | 2017-08-26 21:55 | GCON ---
[f rep st] CONSULTATION INPATIENT INFECTIOUS DISEASE CONSULTATION REFERRING PHYSICIAN: REASON FOR REFERRAL: Neural stimulator hardware infection. HISTORY OF PRESENT ILLNESS: Patient is a 72-year-old female who was admitted to [facility] on 08/25/2017 secondary to worsening erythema overlying the right-sided chest in the same distri bution as where her generator site is. Patient was experiencing some fevers and chills. Patient und erwent hardware removal and generator excision on 08/25/2017. Purulent fluid was found at time of redmond rgery. Gram stains of this fluid show gram-positive cocci. Patient placed on vancomycin empirically . This afternoon, she feels much better. No fevers or chills. No new complaint. PAST MEDICAL HISTORY: Essential tremor. PAST SURGICAL HISTORY: 1. Deep brain stimulator placement. 2. Status post appendectomy. 3. Status post tonsillectomy. SOCIAL HISTORY: Patient is a remote smoker. Occasional alcohol consumer. No drug use. Independent living. FAMILY HISTORY: Reviewed, but noncontributory. REVIEW OF SYSTEMS: Other than that detailed above in the history of present illness, a comprehensive 10-system review is negative. PHYSICAL EXAMINATION: VITAL SIGNS: Temperature maximum is 39.0, temperature current is 36.8, heart rate is 92, respiratory rate is 16, blood pressure is 111/62. GENERAL: Patient is a well-formed, we ll-nourished, older female, in no acute distress. She is not toxic in appearance. She is alert and oriented x3. She has a pleasant demeanor. HEENT: Normocephalic for age. Atraumatic. This is apar t from postoperative dressings on the right temporal region. No scleral icterus. No oral lesion. N o drainage from the nares. Eyes, lids, and conjunctivae are within normal limits. Pupils are equal and round bilaterally. NECK: Supple. No meningismus. Mild tightening and restriction from extensi on on the right side. HEART: Regular rate and rhythm. No significant peripheral edema. LUNGS: Cl ear to auscultation bilaterally with good effort. SKIN: Warm and dry to the touch. No rash or lesi on noted. MUSCULOSKELETAL: No muscle tenderness. No joint line effusion or arthritis seen. NEURO: Cranial nerves 2-12 seem to be intact. Peripheral sensation seems intact in extremities. LABORATORY DATA: Patient has a CBC, dated 08/26/2017, shows white blood cell count of 16.3, hemoglob in of 13.5, hematocrit 40.6, and a platelet count of 261. Differential is left-shifted with 83% segm ented neutrophils. Serum chemistries on 08/26/2017 show sodium of 142, potassium 4.2, chloride of 10 8, bicarbonate of 22, BUN of 14, creatinine of 0.6. MICROBIOLOGIC DATA: Patient has operative cultures dated 08/25/2017. Gram stain showing polymorphon uclear white cells, as well as gram-positive cocci. Cultures are pending. Blood cultures dated 05/2017 are pending. ASSESSMENT: Hardware infection, neurostimulator right chest. Status post explantation. Gram positi ve cocci in gram stain indicates likely streptococcal or staphylococcal infection. Agree with vancom ycin coverage. Current dose of 1.25 g q.12 hours is reasonable. We will keep tracking the culture r esults and adjust accordingly. Will also keep track of vancomycin trough levels, would like to shoul d for trough level around 10 at present. PLAN: 1. Continue IV vancomycin. Check trough level prior to 4th dose. 2. Follow up on operative cultures. Adjust accordingly. /[id number]/MODL
[2017-08-27] MEDS: VANCOMYCIN 1.25 GM in NS 250 ML IV SCH (02:46)
[2017-08-27 05:35] LABS: PLATELET COUNT 240 10^3/uL (150-400)
--- NOTE | 2017-08-27 07:33 | NEUSURGPN ---
Date of Surgery: 08/25/17 Post Op Day: 2 Assessment/Plan: Assessment: 72 yo female that is s/p removal of DBS generator and lead extension for infection-lead into the brain remains Plan: -ID on board as well-appreciate their care and input -cultures show Staph Aureus -sensitivities pending -WBC count better -pt states that she is feeling overall improvement this am -wound looks better -we would recommend course of IV abx due to implantable lead remains proximal to generator site infection -Patient discussed with Dr Gibson -call with any questions or concerns -Please call neurosurgery with any questions/concerns Subjective: Awake and alert. NAD. Eating/drinking and voiding. No f/c/n/v/d. Objective: Awake and alert x 3, PERRLA/EOMI no droop CN 2-12 grossly intact +lt touch 5/5 BUE/BLE = CDI Neuro Check Frequency: per routine Urinary Catheter in Place: No - Physician Discussed Patient with : Arthur Neurosurgery Physical Exam - Vitals, I&O, Labs I and O 08/26/17 08/27/17 08/28/17 05:59 05:59 05:59 Intake Total 1994 350 Output Total 1875 Balance 120 350 Weight 75.2 kg Intake: Oral (ml) 400 350 IV Intake (ml) 1595 Output: Urine (ml) 1850 Toilet 1850 Estimated Blood Loss (ml) 25 Other: Intake Quantity Yes Sufficient Number of Voids Toilet 4 Number of Stools Toilet 3 Microbiology 08/25/17 15:08 Gram Stain - Final Chest - Eswab 08/25/17 15:08 Gram Stain - Final Scalp - Eswab Vital Signs Temp Pulse Resp BP Pulse Ox 36.9 C 83 16 117/83 H 91 L 08/27/17 04:00 08/27/17 04:00 08/27/17 04:00 08/27/17 04:00 08/27/17 04:00 Laboratory Results 08/27/17 05:08 08/26/17 04:54 ICD10 Worksheet Patient Problems: Problems Problem Status Onset Wound infection complicating hardware Acute Essential tremor Acute - ICD10 Problem Qualifiers (1) Wound infection complicating hardware
[2017-08-27] MEDS: SENNOSIDES/DOCUSATE SODIUM TAB PO SCH ×2 (08:10→20:29)
[2017-08-27] MEDS: ENOXAPARIN 40 MG/0.4 ML SYR SC SCH (08:10)
--- NOTE | 2017-08-27 12:23 | HOSPPROG ---
Hospitalist Progress Note Assessment/Plan: Patient is a 72-year-old female who was admitted to [facility] on August 25. She was having worsening erythema over her right sided chest area. She has a generator in this area. She underwent hardware removal and generator excision, purulent fluid was found at that time. Today is my 1st encounter with the patient. Chart reviewed. * cellulitis secondary to hardware infection status post removal/she has some ongoing redness around the right chest wall area -if this continues to be red and she will need further washout -cultures have grown out MSSA -there is concern of possible seeding of lead extensions -the plan is for her to go to the OR tomorrow for removal of this -antibiotics were changed from vancomycin to nafcillin * essential tremor -this is why she had a generator placed -she did get good results with this * the hyperglycemia -hemoglobin A1c is stable at 6 * plan. To go to the OR tomorrow morning removal of extensions. Subjective: Melanie is feeling overall well today. Objective: Vital Signs Temp Pulse Resp BP Pulse Ox 36.8 C 81 16 116/85 H 97 08/27/17 11:42 08/27/17 11:42 08/27/17 11:42 08/27/17 11:42 08/27/17 11:42 Microbiology 08/25/17 15:08 Gram Stain - Final Chest - Eswab 08/25/17 15:08 Gram Stain - Final Scalp - Eswab Laboratory Results 08/27/17 05:08 08/26/17 04:54 08/26/17 08/27/17 08/28/17 05:59 05:59 05:59 Intake Total 1995 350 Output Total 1875 900 Balance 120 350 -900 PT 14.1 SEC (12.0-15.0) 08/25/17 16:14 INR 1.07 (0.83-1.16) 08/25/17 16:14 - Physical Exam Constitutional: no apparent distress, appears nourished, not in pain Eyes: PERRL Ears, Nose, Mouth, Throat: hearing normal Respiratory: no respiratory distress Skin: warm, other (right upper chest wall area below the clavicle with erythema and warmth, edges had been marked on admission and the redness has decreased) Musculoskeletal: full muscle strength Neurologic: AAOx3 Psychiatric: interacting appropriately ICD10 Worksheet Patient Problems: Problems Problem Status Onset Wound infection complicating hardware Acute Essential tremor Acute
--- NOTE | 2017-08-27 14:20 | PCMIDPN ---
Assessment/Plan: Assessment/Plan: 1. Deep brain stimulator generator pocket abscess with possible seeding of lead extension:s/p generator and one lead extension removed - one lead still remains which goes to brain - pus found at the generator pocket. scalp incision without purulent secretions noted. swabs taken at both sites -Both subgaleal cx and chest cultures with MSSA -Discussed care of patient with NSG team and with patient. -Patient to have remaining lead removed tomorrow -currently on VAnco. Will change to Nafcillin. -Close clinical monitoring of chest wall site for improvement in erythema. If erythema extends, or has ongoing fevers, or clinical worsening despite the above plans etc, may need another wash out of area. -care coordinated with NSg team, and hospitalist team Diann levi Subjective: afebrile now. had low grade temp yesterday and didn't feel well last night. STated that she had acute increase in redness overlying her right upper chest below current incision site. area was newly demarcated yesterday. small area of extension outside of the demarcation today. She denies sob, abd pain or diarrhea. Objective: Vital Signs Temp Pulse Resp BP Pulse Ox 36.8 C 81 16 116/85 H 97 08/27/17 11:42 08/27/17 11:42 08/27/17 11:42 08/27/17 11:42 08/27/17 11:42 Microbiology 08/25/17 15:08 Gram Stain - Final Chest - Eswab 08/25/17 15:08 Gram Stain - Final Scalp - Eswab Laboratory Results 08/27/17 05:08 08/26/17 04:54 08/26/17 08/27/17 08/28/17 05:59 05:59 05:59 Intake Total 1994 350 Output Total 1875 900 Balance 120 350 -900 - Physical Exam General Appearance: alert, no apparent distress Respiratory: lungs clear Cardiac/Chest: regular rate, rhythm Extremities: No swelling Abdomen: normal bowel sounds, non-tender, soft, No distended Skin: erythema (right upper chest wall: erythema noted which is over a larger area compared to on admit. the degree of redness is not as bright per patient just larger area. area is warm to touch. swelling over where previous generator was. incision site is above that which does not have erythema overlying, no drainage, nontender. scalp incision site c, d,i. nontender. ) - Time Spent With Patient Time Spent with Patient: greater than 35 minutes Time Spent with Patient: Greater than 35 minutes spent on this patients care, greater than 50% of time spent counseling, educating, and coordinating care regarding the above mentioned plan. ICD10 Worksheet Patient Problems: Problems Problem Status Onset Wound infection complicating hardware Acute Essential tremor Acute
[2017-08-27] MEDS: STERILE WATER IV SCH ×3 (15:19→22:46)
[2017-08-27] MEDS: NAFCILLIN SODIUM IV SCH ×3 (15:19→22:46)
[2017-08-27] MEDS: ACETAMINOPHEN 325 MG TAB PO PRN (20:35)
[2017-08-27] MEDS: DULoxetine 60 MG CAP PO SCH (20:35)
[2017-08-28] MEDS: NAFCILLIN SODIUM IV SCH ×6 (02:32→23:07)
[2017-08-28] MEDS: STERILE WATER IV SCH ×6 (02:32→23:07)
--- NOTE | 2017-08-28 06:15 | PDANEPAE ---
ANE History of Present Illness infected DBS lead and SQ pocket. ANE Past Medical History - Cardiovascular History Hx Hypertension: No Hx Arrhythmias: No Hx Chest Pain: No Hx Coronary Artery / Peripheral Vascular Disease: No Hx CHF / Valvular Disease: No Hx Palpitations: Yes - Pulmonary History Hx COPD: No Hx Asthma/Reactive Airway Disease: No Hx Recent Upper Respiratory Infection: Yes Hx Oxygen in Use at Home: No Hx Sleep Apnea: No Sleep Apnea Screening Result - Last Documented: Negative Pulmonary History Comment: "Getting over an upper respiratory infection." - Neurologic History Hx Cerebrovascular Accident: No Hx Seizures: No Hx Dementia: No Neurologic History Comment: essential tremor - Endocrine History Hx Diabetes: No Hypothyroid: No Hyperthyroid: No Obesity: moderate - Renal History Hx Renal Disorders: No - Liver History Hx Hepatic Disorders: No - Neurological & Psychiatric Hx Hx Neurological and Psychiatric Disorders: Yes Neurological / Psychiatric History Comment: Essential tremor - Cancer History Hx Cancer: No - Congenital Disorder History Hx Congenital Disorders: No - GI History GERD: no Hx Gastrointestinal Disorders: No - Other Health History Other Health History: wears glasses - Chronic Pain History Chronic Pain: Yes - Surgical History Prior Surgeries: appendectomy at age 6. tonsillectomy at age 9. Blephoplasty bilateral 2014 ANE Review of Systems Review of Systems: - Exercise capacity METS (RN): 3 METS ANE Patient History - Allergies Allergies/Adverse Reactions: No Known Allergies Allergy (Verified 05/31/17 13:56) - Home Medications Home Medications: DULoxetine [Cymbalta 60 MG (*)] 60 mg PO HS 09/06/09 [Last Taken 08/24/17] Acetaminophen [Tylenol 325mg (*)] 325 mg PO DAILY PRN 05/07/17 [Last Taken 08/25 08:00] Ascorbic Acid [Vitamin C 500 mg (*)] 1,000 mg PO DAILY 05/07/17 [Last Taken 06/13] Risedronate Sodium [Actonel] 150 mg PO Q30D 05/07/17 [Last Taken 1 Month Ago ~] Zolpidem Tartrate [Ambien 5MG (*)] 5 mg PO HS PRN 05/07/17 [Last Taken 06/25/17] valACYclovir [Valtrex (*)] 1,000 mg PO BID PRN 05/07/17 [Last Taken 08/24/17 21: 00] Calcium Carbonate [Oyster Shell Calcium 500 mg (*)] 500 mg PO BID 08/25/17 [ Last Taken 08/24/17 21:00] Cholecalciferol Vit D3 [Vitamin D3 (*)] 1,000 units PO BID 08/25/17 [Last Taken 08/24/17 21:00] Herbals/Supplements -Info Only 1 ea PO DAILY 08/25/17 [Last Taken Unknown] - NPO status NPO Since - Liquids (Date): 08/28/17 NPO Since - Liquids (Time): 00:00 NPO Since - Solids (Date): 08/27/17 NPO Since - Solids (Time): 20:00 - Anes Hx Anes Hx: no prior problems - Smoking Hx Smoking Status: Former smoker Marijuana use: No - Alcohol Use Alcohol Use: Occasionally (A couple times a week, no history of withdrawal) - Family Anes Hx Family Anes Hx: none Family Hx Anesthesia Complications: none ANE Labs/Vital Signs - Labs Result Diagrams: 08/27/17 05:08 08/26/17 04:54 - Vital Signs Blood Pressure: 153/88 Heart Rate: 80 Respiratory Rate: 16 O2 Sat (%): 97 Height: 160.02 cm Weight: 74.6 kg ANE Physical Exam - Airway Neck exam: FROM Mallampati Score: Class 2 Mouth exam: normal dental/mouth exam (Upper front caps) - Pulmonary Pulmonary: clear to auscultation - Cardiovascular Cardiovascular: regular rate and rhythym - ASA Status ASA Status: III ANE Anesthesia Plan Anesthesia Plan: general endotracheal anesthesia
[2017-08-28] MEDS ORDERED: CHLORHEXIDINE GLUC HIBICLENS 118 ML BTL TP ONE (06:34)
[2017-08-28] MEDS ORDERED: BACITRACIN 50,000 UNITS/10 ML SYR IRR ONE (06:34)
[2017-08-28] MEDS ORDERED: BACITRACIN ZINC 14.2 GM OINTTUBE TP ONE (06:34)
[2017-08-28] MEDS ORDERED: BUPIVACAINE 0.25% 30 ML SDV ONE (06:34)
[2017-08-28] MEDS ORDERED: LR 1,000 ML IV ONE (06:41)
[2017-08-28] MEDS ORDERED: MIDAZOLAM 2 MG/2 ML VIAL ONE (07:07)
[2017-08-28] MEDS ORDERED: MIDAZOLAM 2 MG/2 ML VIAL IVP ONE (07:09)
[2017-08-28] MEDS ORDERED: fentaNYL 100 MCG/2 ML INJ ONE ×3 (07:12→09:23)
[2017-08-28] MEDS ORDERED: DEXAMETHASONE 4 MG/ML VIAL ONE (07:13)
[2017-08-28] MEDS ORDERED: ROCURONIUM 50 MG/5 ML VIAL ONE (07:13)
[2017-08-28] MEDS ORDERED: PROPOFOL 200 MG/20 ML VIAL ONE ×2 (07:13→07:58)
[2017-08-28] MEDS ORDERED: ONDANSETRON 4 MG/2 ML VIAL ONE (07:55)
[2017-08-28] MEDS ORDERED: GENTAMICIN SULFATE 80 MG/2 ML VIAL ONE (08:00)
[2017-08-28] MEDS ORDERED: NALOXONE HCL 0.4 MG/ML INJ IVP PRN (08:22)
[2017-08-28] MEDS ORDERED: ONDANSETRON 4 MG/2 ML VIAL IVP PRN (08:22)
[2017-08-28] MEDS ORDERED: fentaNYL 100 MCG/2 ML INJ IVP PRN (08:22)
[2017-08-28] MEDS ORDERED: SUGAMMADEX SODIUM 200 MG/2 ML VIAL IVP ONE (08:23)
[2017-08-28] MEDS ORDERED: diphenhydrAMINE 25 MG CAP PO PRN (08:45)
[2017-08-28] MEDS ORDERED: NS W/ 20 KCl/L 1,000 ML IV SCH (08:45)
[2017-08-28] MEDS ORDERED: NS 1,000 ML IV SCH (09:00)
--- NOTE | 2017-08-28 09:12 | GOP ---
[f rep st] OPERATIVE REPORT DATE OF OPERATION: 08/28/2017 SURGEON: Consuelo Gibson DO NEUROSURGEON: Consuelo Gibson DO DIRECTOR OF OPERATIONS HOME HEALTH: KASSANDRA Osuna PREOPERATIVE DIAGNOSIS: Infected generator site. POSTOPERATIVE DIAGNOSIS: Infected generator site. PROCEDURE PERFORMED: 1. Removal of deep brain stimulator intracranial electrode. 2. Repeat washout, right chest wall generator site. FINDINGS: SPECIMENS: None. ESTIMATED BLOOD LOSS: 10 mL. INDICATIONS: This is a 72-year-old female, who had a wash out and removal of her chest wall generato r. We offered her removal of the intracranial lead after the extension culture came back positive an d it was unclear whether or not the intracranial lead was infected. She elected to have it all remov ed and rewashed out the chest as there was more fluid accumulation. DESCRIPTION OF PROCEDURE: She was identified, consented. Sites were marked. Brought to the operati ng room, anesthetized under general endotracheal anesthesia, the hair was clipped with the OR clipper s. An incision site was marked. She was prepped and draped in the usual sterile fashion. The incis ion on the head was anesthetized with 0.25% Marcaine with epinephrine. An incision was made with a 1 0 blade and using a periosteal, we dissected out the lead cap. We removed the lead screws with a 5 m m drill and removed the cap, removed the lead and cut the lead off without touching it, the intracran ial portion, and sent it for culture. We then used a Bovie to dissect out the remainder of the lead, which was well scarred in, and bring it all the way out visualizing that we had completely removed t he lead. We then copiously irrigated with over 2 L of gentamicin infused saline, closed the galea wi th 2-0 Vicryl pop-offs, the skin with 3-0 running nylon. We undraped, removed the sutures at the chest wall incision and re-prepped and draped. Opening that incision with a 10 blade. When we got to the deep layer, we got immediate egress of serosanguineous fluid. No obvious pus. This was washed out with another 2 L of gentamicin infused saline. We then closed the fascia with 2-0 Vicryl pop-offs and the skin with a 3-0 running nylon. All wounds were dressed with Xeroform and Telfa, stapled down at the head and Tegaderm at the chest. The patient tolerated the procedure well. No complications. FLUIDS: 800 mL crystalloid. URINE OUTPUT: None. DRAINS: None. COMPLICATIONS: None. /[id number]/MODL
--- NOTE | 2017-08-28 09:12 | POSTOPPROG ---
Post Op Note Date of Operation: 08/28/17 Surgeon: Consuelo Gibson Job Placement Specialist: Sandra Jaramillo PA-C Anesthesiologist: Dr. Chaz Espana Anesthesia: GET(General Endotracheal) Pre-op Diagnosis: DBS generator infection Post-op Diagnosis: DBS generator infection Procedure: Removal of DBS lead and wound washout of generator pocket Inf/Abcess present in the surg proc area at time of surgery?: No Depth: Superfical (Skin SQ) EBL: Minimal Plan Plan: 72 yo female s/p removal of DBS lead and wound washout of generator pocket - neuro checks - pain control - advance diet as tolerated - IV abx per ID - will likely need PICC line - sent DBS brain lead for culture Exam Patient seen in recovery. Pain controlled. Awake. Alert Following commands, JIM Incisions with dressings c/d/i Facial expression symmetrical. Speech fluent
--- NOTE | 2017-08-28 09:20 | POSTANESTH ---
Post Anesthetic Evaluation Cardiovascular Status: Similar to Pre-Op Cond Respiratory Status: Similar to Pre-op Cond. Level of Consciousness/Mental Status: Can Participate in Eval Pain Control: Adequate, Prn Tx Ordered Nausea/Vomiting Control: Adequate, Prn Tx Ordered Complications Possibly Related to Anesthesia: None Noted
[2017-08-28] MEDS: SENNOSIDES/DOCUSATE SODIUM TAB PO SCH ×2 (10:55→21:23)
[2017-08-28] MEDS: ENOXAPARIN 40 MG/0.4 ML SYR SC SCH (11:12)
[2017-08-28] MEDS ORDERED: ALTEPLASE 2 MG VIAL IVP PRN (11:37)
[2017-08-28] MEDS ORDERED: hydrALAZINE 10 MG TAB PO PRN (12:40)
[2017-08-28] MEDS: HYDROmorphONE/DILAUDID 2 MG TAB PO PRN ×2 (12:51→19:18)
--- NOTE | 2017-08-28 16:01 | HOSPPROG ---
Hospitalist Progress Note Assessment/Plan: Patient is a 72-year-old female who was admitted to [facility] on August 25. She was having worsening erythema over her right sided chest area. She has a generator in this area. She underwent hardware removal and generator excision, purulent fluid was found at that time. * cellulitis secondary to hardware infection status post removal -today she had removal of DBS lead and washout of generator pocket (chest wall area much less red today) -cultures have grown out MSSA -Nafcillin -PICC ordered * essential tremor -this is why she had a generator placed -she did get good results with treatment for her tremor after this was placed * the hyperglycemia -hemoglobin A1c is stable at 6 *htn -patient had been normotensive during earlier part of her stay -have added prn hydralazine * plan. PICC to be placed Subjective: Melanie is feeling well, has no complaints, no headache. Objective: Vital Signs Temp Pulse Resp BP Pulse Ox 36.8 C 87 18 150/92 H 93 08/28/17 15:45 08/28/17 15:45 08/28/17 15:45 08/28/17 15:45 08/28/17 15:45 Microbiology 08/25/17 15:08 Gram Stain - Final Chest - Eswab 08/25/17 15:08 Gram Stain - Final Scalp - Eswab 08/28/17 07:58 Gram Stain - Final Brain - Other Anaerobic Culture - Final Laboratory Results 08/27/17 05:08 08/26/17 04:54 08/27/17 08/28/17 08/29/17 05:59 05:59 05:59 Intake Total 350 210 760 Output Total 2500 810 Balance 350 -2290 -50 PT 14.1 SEC (12.0-15.0) 08/25/17 16:14 INR 1.07 (0.83-1.16) 08/25/17 16:14 - Physical Exam Constitutional: no apparent distress, appears nourished, not in pain Eyes: PERRL Ears, Nose, Mouth, Throat: hearing normal Cardiovascular: regular rate and rhythym Respiratory: no respiratory distress Skin: warm, other (less eythema on the right cw area below the clavicle) Musculoskeletal: full muscle strength Neurologic: AAOx3 Psychiatric: interacting appropriately ICD10 Worksheet Patient Problems: Problems Problem Status Onset Wound infection complicating hardware Acute Essential tremor Acute
--- NOTE | 2017-08-28 16:33 | ASMTCMCOM ---
CM Note CM Note Notes: Spoke w/RN, states pt taken back for removal of Deep Brain Stimulator and wash out, will need IV abx. DC Plan: [facility] Date Signed: 08/28/2017 04:33 PM Electronically Signed By:Yuki Baugh RN
--- NOTE | 2017-08-28 17:17 | PDIAF ---
- Diagnosis Diagnosis: MSSA Deep brain stimulator infection Code Status: Full Code - Medication Management Discharge Medications: Medications to Continue on Transfer DULoxetine [Cymbalta 60 MG (*)] 60 mg PO HS 09/06/09 [Last Taken 08/24/17] Acetaminophen [Tylenol 325mg (*)] 325 mg PO DAILY PRN 05/07/17 [Last Taken 08/25 08:00] Ascorbic Acid [Vitamin C 500 mg (*)] 1,000 mg PO DAILY 05/07/17 [Last Taken 06/13] Risedronate Sodium [Actonel] 150 mg PO Q30D 05/07/17 [Last Taken 1 Month Ago ~] Zolpidem Tartrate [Ambien 5MG (*)] 5 mg PO HS PRN 05/07/17 [Last Taken 06/25/17] valACYclovir [Valtrex (*)] 1,000 mg PO BID PRN 05/07/17 [Last Taken 08/24/17 21: 00] Calcium Carbonate [Oyster Shell Calcium 500 mg (*)] 500 mg PO BID 08/25/17 [ Last Taken 08/24/17 21:00] Cholecalciferol Vit D3 [Vitamin D3 (*)] 1,000 units PO BID 08/25/17 [Last Taken 08/24/17 21:00] Herbals/Supplements -Info Only 1 ea PO DAILY 08/25/17 [Last Taken Unknown] Nursing Home Antibiotics: nafcillin 12gm IV continuous infusion Nursing Home Antibiotic Stop Date: 09/10/17 Discharge Medications: Refer to the Discharge Home Medication list for PRN reason. PICC Care - Routine: Yes - Orders Services needed: Home Care, Registered Nurse Home Care Face to Face: I certify that this patient was under my care and that I had the required [id number] encounter meeting the encounter requirements on the discharge day. My findings support the fact that the patient is homebound as defined in Home Care Face to Face Continued: CMS Chapter 7 Medicare Benefits Manual 30.1.1 , The condition of the patient is such that there exists a normal inability to leave home and consequently, leaving home would require a considerable and taxing effort. - Labs/Radiology CBC w/diff Date: 09/02/17 (weekly saturday) CMP Date: 09/02/17 (weekly saturday) Call or Fax Lab and Imaging Results to: Dr Steele at [phone] - Follow Up Care Current Providers and Referrals: Sugey Upton MD [Primary Care Provider] - Vinicius Steele MD [Medical Doctor] -
--- NOTE | 2017-08-28 17:27 | PCMIDPN ---
Assessment/Plan: MSSA deep brain stimulator infection and chest wall cellulitis at site of generator. Significant improvement in R chest wall cellulitis today. Remaining portion deep brain stimulator removed today. Concern for infection descending along DBS and culture was taken today. Patient is on Nafcillin for cellulitis + DIRECTOR PRODUCT penetration. Reviewed side effect of Nafcillin with patient at bedside including bone marrow suppression, ARF, hepatitis, rash, diarrhea. Okay for DC tomorrow. Follow up in ID clinic in 1 week Subjective: feeling well, minimal pain had significant pain with infusion nafcillin from PIV today Objective: Vital Signs Temp Pulse Resp BP Pulse Ox 36.8 C 87 18 150/92 H 93 08/28/17 15:45 08/28/17 15:45 08/28/17 15:45 08/28/17 15:45 08/28/17 15:45 Microbiology 08/25/17 15:08 Gram Stain - Final Chest - Eswab 08/25/17 15:08 Gram Stain - Final Scalp - Eswab 08/28/17 07:58 Gram Stain - Final Brain - Other Anaerobic Culture - Final Laboratory Results 08/27/17 05:08 08/26/17 04:54 08/27/17 08/28/17 08/29/17 05:59 05:59 05:59 Intake Total 350 210 760 Output Total 2500 810 Balance 350 -2290 -50 - Physical Exam General Appearance: alert, no apparent distress, other (dressing on R side of scalp is stapled on) Respiratory: No accessory muscle use Neck: supple Cardiac/Chest: regular rate, rhythm, other (Cellulitis R chest wall with obvious recession, purplish erythema , mild swelling, no fluctuance. ), No systolic murmur Extremities: No pedal edema Neuro/Psych: alert, normal mood/affect, oriented x 3 - Line/s LUE PICC Lines: No drainage, No erythema - Time Spent With Patient Time Spent with Patient: greater than 25 minutes Time Spent with Patient: Greater than 25 minutes spent on this patients care, greater than 50% of time spent counseling, educating, and coordinating care regarding the above mentioned plan. ICD10 Worksheet Patient Problems: Problems Problem Status Onset Wound infection complicating hardware Acute Essential tremor Acute
[2017-08-28] MEDS: DULoxetine 60 MG CAP PO SCH (21:12)
[2017-08-28] MEDS: HYDROCODONE/APAP 5/325 TAB PO PRN (21:12)
[2017-08-29] MEDS: NAFCILLIN SODIUM IV SCH ×4 (02:51→13:37)
[2017-08-29] MEDS: STERILE WATER IV SCH ×4 (02:51→13:37)
[2017-08-29 05:27] VITALS: O2SAT 94
[2017-08-29] MEDS: HYDROCODONE/APAP 5/325 TAB PO PRN ×2 (06:16→10:22)
[2017-08-29 07:21] VITALS: TEMP 98.8
[2017-08-29] MEDS: ENOXAPARIN 40 MG/0.4 ML SYR SC SCH (07:22)
[2017-08-29] MEDS: SENNOSIDES/DOCUSATE SODIUM TAB PO SCH (07:23)
--- NOTE | 2017-08-29 08:57 | SOAPPROG ---
SOAP Progress Note Assessment/Plan: Assessment: 72 yo F sp removal of infected DBS lead and stim Plan: stable MSSA on cultures, on nafcillin PT/OT ok to dc when cleared by ID please call with neuro changes discussed with Dr Gibson 08/29/17 08:55 Subjective: mild headaches, no N/V. No weakness. Objective: Vital Signs Temp Pulse Resp BP Pulse Ox 37.1 C 80 18 129/74 H 94 08/29/17 07:20 08/29/17 07:20 08/29/17 07:20 08/29/17 07:20 08/29/17 07:20 Microbiology 08/25/17 15:08 Gram Stain - Final Chest - Eswab 08/25/17 15:08 Gram Stain - Final Scalp - Eswab 08/28/17 07:58 Gram Stain - Final Brain - Other Anaerobic Culture - Final Laboratory Results 08/27/17 05:08 08/26/17 04:54 08/28/17 08/29/17 08/30/17 05:59 05:59 05:59 Intake Total 210 1260 Output Total 2500 2310 Balance -2290 -1050 PT 14.1 SEC (12.0-15.0) 08/25/17 16:14 INR 1.07 (0.83-1.16) 08/25/17 16:14 AAOx4, +FC PERRL, EOMI, no facial droop MAURO x 4 + light touch C/D/I ICD10 Worksheet Patient Problems: Problems Problem Status Onset Wound infection complicating hardware Acute Essential tremor Acute
--- NOTE | 2017-08-29 09:19 | PDIAF ---
- Diagnosis Diagnosis: MSSA Deep brain stimulator infection Code Status: Full Code - Medication Management Discharge Medications: Medications to Continue on Transfer DULoxetine [Cymbalta 60 MG (*)] 60 mg PO HS 09/06/09 [Last Taken 08/24/17] Acetaminophen [Tylenol 325mg (*)] 325 mg PO DAILY PRN 05/07/17 [Last Taken 08/25 08:00] Ascorbic Acid [Vitamin C 500 mg (*)] 1,000 mg PO DAILY 05/07/17 [Last Taken 06/13] Risedronate Sodium [Actonel] 150 mg PO Q30D 05/07/17 [Last Taken 1 Month Ago ~] Zolpidem Tartrate [Ambien 5MG (*)] 5 mg PO HS PRN 05/07/17 [Last Taken 06/25/17] valACYclovir [Valtrex (*)] 1,000 mg PO BID PRN 05/07/17 [Last Taken 08/24/17 21: 00] Calcium Carbonate [Oyster Shell Calcium 500 mg (*)] 500 mg PO BID 08/25/17 [ Last Taken 08/24/17 21:00] Cholecalciferol Vit D3 [Vitamin D3 (*)] 1,000 units PO BID 08/25/17 [Last Taken 08/24/17 21:00] Herbals/Supplements -Info Only 1 ea PO DAILY 08/25/17 [Last Taken Unknown] Half-Way Antibiotics: nafcillin 12gm IV continuous infusion Half-Way Antibiotic Stop Date: 09/10/17 Discharge Medications: Refer to the Discharge Home Medication list for PRN reason. PICC Care - Routine: Yes - Orders Services needed: Home Care, Registered Nurse Home Care Face to Face: I certify that this patient was under my care and that I had the required [id number] encounter meeting the encounter requirements on the discharge day. My findings support the fact that the patient is homebound as defined in Home Care Face to Face Continued: CMS Chapter 7 Medicare Benefits Manual 30.1.1 , The condition of the patient is such that there exists a normal inability to leave home and consequently, leaving home would require a considerable and taxing effort. - Labs/Radiology CBC w/diff Date: 09/02/17 (weekly saturday) CMP Date: 09/02/17 (weekly saturday) Call or Fax Lab and Imaging Results to: Dr Steele at [phone] - Follow Up Care Current Providers and Referrals: Vinicius Steele MD [Medical Doctor] - 09/09/17 11:00 am Sugey Upton MD [Primary Care Provider] -
[2017-08-29 11:30] VITALS: BP 124/84; PULSE 91; RESP 17
--- NOTE | 2017-08-29 14:25 | PDIAF ---
- Diagnosis Diagnosis: MSSA Deep brain stimulator infection Code Status: Full Code - Medication Management Discharge Medications: Medications to Continue on Transfer DULoxetine [Cymbalta 60 MG (*)] 60 mg PO HS 09/06/09 [Last Taken 08/24/17] Acetaminophen [Tylenol 325mg (*)] 325 mg PO DAILY PRN 05/07/17 [Last Taken 08/25 08:00] Ascorbic Acid [Vitamin C 500 mg (*)] 1,000 mg PO DAILY 05/07/17 [Last Taken 06/13] Risedronate Sodium [Actonel] 150 mg PO Q30D 05/07/17 [Last Taken 1 Month Ago ~] Zolpidem Tartrate [Ambien 5MG (*)] 5 mg PO HS PRN 05/07/17 [Last Taken 06/25/17] valACYclovir [Valtrex (*)] 1,000 mg PO BID PRN 05/07/17 [Last Taken 08/24/17 21: 00] Calcium Carbonate [Oyster Shell Calcium 500 mg (*)] 500 mg PO BID 08/25/17 [ Last Taken 08/24/17 21:00] Cholecalciferol Vit D3 [Vitamin D3 (*)] 1,000 units PO BID 08/25/17 [Last Taken 08/24/17 21:00] Herbals/Supplements -Info Only 1 ea PO DAILY 08/25/17 [Last Taken Unknown] HYDROmorphone HCL [Dilaudid 2 mg (*)] 2 mg PO Q4HRS PRN #20 tab 08/29/17 [Last Taken Unknown] Hydrocodone/APAP 5/325 [Pearce 5/325 (*)] 1 tab PO Q4HRS PRN #20 tab 08/29/17 [ Last Taken Unknown] Polyethylene Glycol 3350 [Miralax 17 gm (*)] 17 gm PO DAILY PRN pkt 08/29/17 [ Last Taken Unknown] Sennosides/Docusate Sodium [Senokot-S] 1 - 2 tab PO BID tab 08/29/17 [Last Taken Unknown] Telecommunications Line Mechanic Antibiotics: nafcillin 12gm IV continuous infusion Telecommunications Line Mechanic Antibiotic Stop Date: 09/10/17 Discharge Medications: Refer to the Discharge Home Medication list for PRN reason. PICC Care - Routine: Yes - Orders Services needed: Home Care, Registered Nurse Home Care Face to Face: I certify that this patient was under my care and that I had the required [id number] encounter meeting the encounter requirements on the discharge day. My findings support the fact that the patient is homebound as defined in Home Care Face to Face Continued: CMS Chapter 7 Medicare Benefits Manual 30.1.1 , The condition of the patient is such that there exists a normal inability to leave home and consequently, leaving home would require a considerable and taxing effort. Diet Recommendation: no restrictions on diet - Labs/Radiology CBC w/diff Date: 09/02/17 (weekly saturday) CMP Date: 09/02/17 (weekly saturday) Call or Fax Lab and Imaging Results to: Dr Steele at [phone] - Follow Up Care Current Providers and Referrals: Vinicius Steele MD [Medical Doctor] - 09/09/17 11:00 am Sugey Upton MD [Primary Care Provider] -
--- NOTE | 2017-08-29 15:23 | GDS ---
[f rep st] DISCHARGE SUMMARY DISCHARGE DIAGNOSES: 1. Methicillin-sensitive Staphylococcus aureus deep brain stimulator infection. 2. Chest wall cellulitis. 3. Hyperglycemia. 4. Hypertension. CONSULTATIONS: 1. Infectious Disease. 2. Neurosurgery. STUDIES AND PROCEDURES DONE: 1. PICC line insertion. 2. Removal of deep brain stimulator intracranial electrode with washout of this chest wall. PHYSICAL EXAM: GENERAL: The patient is alert. VITAL SIGNS: Afebrile at 37.1, pulse is 91, respiratory rate 17, blood pressure is 124/84. She has been saturating 94% on room air. I have seen and evaluated the patient on the day of discharge. HOSPITAL COURSE: Patient is a 72-year-old female. Presented to the hospital with worsening erythema on her right chest area. She was evaluated and diagnosed with: 1. Cellulitis secondary to hardware infection of her right chest wall. During this hospitalization, the hardware was removed and the patient had a washout. She responded well to antibiotic therapy. 2. MSSA infection of her deep brain stimulator. During this hospital course, she received a consult ation from Neurosurgery. This has been removed prior to disposition. 3. Hyperglycemia. Her A1c is stable. This is secondary to the patient's stress, hypertension. Thi s is within normal limits. 4. Disposition. The patient will be discharged home with home IV antibiotic therapy and home health care. DISCHARGE MEDICATIONS: Please refer to EMR form. New medications include IV antibiotic therapy of n afcillin 12 g IV continuous infusion. This has been arranged for her to be done at home in the outpa tient setting with a PICC line placement. Other discharge medications: Please refer to EMR form. FOLLOWUP: Followup will be with Primary Care, Dr. Sugey Upton, as well as Dr. Vinicius Steele of Infectious Disease. I spent greater than 35 minutes in the care, coordination, and management of this patient's dispositi on. /[id number]/MODL
--- NOTE | 2017-08-29 16:36 | ASDISCHSUM ---
Discharge Information Plan Status:IV ABX/Infusion Medically Cleared to Leave: Discharge Date:08/29/2017 03:40 PM D/C Disposition:Home Health Service ADT D/C Disposition:Home Health Service Projected Discharge Date:08/29/2017 11:00 AM Transportation at D/C:Family Discharge Delay Reason: Follow-Up Date:08/29/2017 11:00 AM Discharge Slot: Final Diagnosis: Placement Information Referral Type:*Home Health Care Services Referral ID:[id number] [facility] Address 1[address] Address 2: City:[place] Selection Factors: State:[place] Referral Type:Home Infusion Referral ID:[id number] Provider Name:[facility]) Address 1:[address] Address 2: City:[place] Selection Factors: State:[place] Patient Contact Information Contact Name:SDAI Relationship: Address:[address] City:[place] Alternate Phone: [facility]/Zip Code:[place] [address] Email: Financial Information Financial Class:Medicare Advantage Plans Primary Plan Desc:Zadby Primary Plan Number:[id number] Secondary Plan Desc: Secondary Plan Number: Assessment Information LACE LACE Length of stay for Answers: 4-6 days current admission Acuity / Level of Answers: Yes Care: Did the patient have an inpatient admission? Comorbidities - select Answers: Opioid dependence all that apply / Chronic pain # of Emergency department Answers: 0 visits in the last 6 months Score: 11 Date Signed: 08/29/2017 03:04 PM Electronically Signed By:Yuki Baugh RN [facility] Initial CM Assessment Living Arrangements What is your living Answers: With Spouse arrangement? Who do you live with? Type Of Residence What kind of residence do Answers: House you live in? Discharge Plan Comments Coordination Status Comments Notes: Pt is a 72 y/o female admitted for cellulitis and bactermeia. CM spoke w/ Dr. Gagnon and SARA Jaime regarding d/c POC. ID has been consulted. Pt will most likely d/c either tomorrow or the following day. Awaiting blood cultures. Pt would like referrals sent to [facility] for home infusion. Pt does not have a preference on HC agency. Referral made to [facility]. [facility] and [facility] are able to accept. Pt reports that her daughter in law is a nurse. CM to follow. Plan: RANDI RN and Amdovta Date Signed: 08/26/2017 12:02 PM Electronically Signed By:MARQUEZ Pandey [facility] CM Progress Note CM Note CM Note Notes: Spoke w/RN, states pt taken back for removal of Deep Brain Stimulator and wash out, will need IV abx. DC Plan: [facility] Date Signed: 08/28/2017 04:33 PM Electronically Signed By:Yuki Baugh RN Case Management Discharge Plan Note Case Management Discharge Discharge Order Complete? Answers: Yes Patient to Obtain Answers: Other Notes: [facility] Medications Transportation Arranged Answers: Family/Friends Faxed Final Orders Answers: Yes Family Notified Answers: Yes Discharge Comments Notes: D/w HANDY MAN, final orders faxed. Chelsea at [facility] and Alyssa at [facility] notified. Discussed with pt, [facility] will deliver medication at 5pm [facility]. Another RN Jennifer will come Saturday at 11am. Pt verbalized understanding and stated she has good support at home with who cooks and a dtr who is an RN. Date Signed: 08/29/2017 03:02 PM Electronically Signed By:Yuki Baugh RN Intervention Information
== END 2017-08-29 15:40 | disposition home health service (06) | DRG 26 ==
LOC: F3E 10:31 → OBSVTOIN 13:09
PROVIDERS: ADMIT Internal Medicine; ATTEND Internal Medicine
PROC: 0JPT0MZ Removal of Stimulator Generator from Trunk Subcutaneous Tissue and Fascia, Open Approach (ICD-10-PCS; 2017-08-25)
PROC: 0JP Subcutaneous Tissue and Fascia, Removal (ICD-10-PCS; 2017-08-25)
PROC: 02HV33Z Insertion of Infusion Device into Superior Vena Cava, Percutaneous Approach (ICD-10-PCS; 2017-08-28)
PROC: 00P Central Nervous System and Cranial Nerves, Removal (ICD-10-PCS; principal; 2017-08-28 07:15)
PROC: 0J960ZZ Drainage of Chest Subcutaneous Tissue and Fascia, Open Approach (ICD-10-PCS; principal; 2017-08-28 07:15)
DX: T85.738A Infection and inflammatory reaction due to other nervous system device, implant or graft, initial encounter (principal); B95.61 Methicillin susceptible Staphylococcus aureus infection as the cause of diseases classified elsewhere; L03.313 Cellulitis of chest wall; R73.9 Hyperglycemia, unspecified; I10 Essential (primary) hypertension; G25.0 Essential tremor
CPT/HCPCS: C1713; C1751; J0171; J1100; J1580; J1650; J2250; J2370; J2405; J2704; J3010; J3370

== ENCOUNTER → 2018-04-09 | Outpatient (CLI) | payer OTHER | LOC: FIMAGING 12:26 | PROVIDERS: ATTEND Internal Medicine | DX: Z12.31 Encounter for screening mammogram for malignant neoplasm of breast (principal) ==